=== PATIENT | female | born 1950 | race Caucasian/White ===

== ENCOUNTER 2024-06-04 10:41 | Outpatient (AMB) | payer BC, SELFPAY ==
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
[2024-06-04 10:59] VITALS: BP 142/76; PULSE 52; RESP 15; O2SAT 97; BMI 29.3
== END 2024-06-04 11:53 | disposition home or self-care (01) ==
PROVIDERS: PCP Nurse Practitioner Family; Visit Provider Nurse Practitioner Family
DX: I10 Essential (primary) hypertension (principal); M17.0 Bilateral primary osteoarthritis of knee; J44.89 Other specified chronic obstructive pulmonary disease; E78.2 Mixed hyperlipidemia; F43.23 Adjustment disorder with mixed anxiety and depressed mood; E06.3 Autoimmune thyroiditis; I25.10 Atherosclerotic heart disease of native coronary artery without angina pectoris; K44.9 Diaphragmatic hernia without obstruction or gangrene; K21.9 Gastro-esophageal reflux disease without esophagitis; R09.89 Other specified symptoms and signs involving the circulatory and respiratory systems

== ENCOUNTER → 2024-06-04 10:41 | Outpatient (BNVA) | payer BC, SELFPAY | PROVIDERS: PCP Nurse Practitioner Family; Visit Provider Nurse Practitioner Family | DX: M17.0 Bilateral primary osteoarthritis of knee (principal); I10 Essential (primary) hypertension; E78.2 Mixed hyperlipidemia; J44.89 Other specified chronic obstructive pulmonary disease; F43.23 Adjustment disorder with mixed anxiety and depressed mood; I25.10 Atherosclerotic heart disease of native coronary artery without angina pectoris; K44.9 Diaphragmatic hernia without obstruction or gangrene; K21.9 Gastro-esophageal reflux disease without esophagitis; R09.89 Other specified symptoms and signs involving the circulatory and respiratory systems | CPT/HCPCS: 96127; 96160 ==

== ENCOUNTER 2024-06-04 12:00 | Outpatient (REF) | payer MEDICARE, BC, SELFPAY ==
[2024-06-04 14:25] LABS: Hematocrit 44.2 % (37.0-47.0); Mean Corpuscular HGB Conc 33.9 g/dl (31.0-35.0); Mean Corpuscular Hemoglobin 29.2 pg (27.0-33.0); Mean Corpuscular Volume 86.2 fL (80.0-98.0); Mean Platelet Volume 9.4 fL (9.4-12.3); Platelet Count 427 X10*3/uL (160-400); Red Blood Count 5.13 X10*6/uL (4.20-5.50); Red Cell Distribution Width 12.7 % (11.0-16.0); White Blood Count 9.2 X10*3/uL (4.8-10.8)
[2024-06-04 14:36] LABS: Estimated Average Glucose 114 mg/dL; Hemoglobin A1c % 5.6 % (<6.0)
[2024-06-04 14:47] LABS: Creatinine Urine 30.85 mg/dL; Microalbumin Urine < 5.0 mg/L
[2024-06-04 15:13] LABS: TSH reflex Free T4 1.16 uIU/mL (0.32-4.0); Vitamin D 25-OH Total 57.5 ng/mL (>30)
[2024-06-04 15:19] LABS: Folate 17.1 ng/mL (> or = 4.0); Vitamin B12 794 pg/mL (200-900)
[2024-06-04 15:20] LABS: Anion Gap 15 (12-20)
[2024-06-04 15:25] LABS: Alanine Aminotransferase 35 U/L (0-31); Albumin Level 4.3 g/dL (3.5-5.0); Alkaline Phosphatase 100 U/L (39-117); Aspartate Amino Transferase 23 U/L (5-31); Bilirubin Total 0.5 mg/dL (0.0-1.0); Blood Urea Nitrogen 13 mg/dL (9-16); Calcium 10.4 mg/dL (8.4-10.2); Carbon Dioxide 28 mmol/L (22-29); Chloride 96 mmol/L (96-108); Estimated Glomerular Filt Rate > 60; Glucose Random 92 mg/dL (60-115); Iron 118 mcg/dL (30-160); Percent Iron Saturation 44 % (15-50); Potassium 4.5 mmol/L (3.3-5.1); Sodium 134 mmol/L (135-145); Total Iron Binding Capacity 270 mcg/dL (228-428); Total Protein 7.9 g/dL (6.5-8.0); Unsaturated Iron Binding 152 ug/dL
[2024-06-06 07:08] LABS: LDL Cholesterol Direct 131 mg/dL (<100)
== END 2024-06-04 12:01 | disposition home or self-care (01) ==
LOC: HO.WFDLDS 12:00
PROVIDERS: Visit Provider Nurse Practitioner Family
DX: E78.5 Hyperlipidemia, unspecified (principal); I10 Essential (primary) hypertension; M17.0 Bilateral primary osteoarthritis of knee
CPT/HCPCS: 36415; 80053; 82306; 82570; 82607; 82746; 83036; 83540; 83721; 84443; 85027

== ENCOUNTER 2024-06-23 10:25 | Outpatient (AMB) | payer MEDICARE, SELFPAY ==
--- NOTE | 2024-06-23 10:33 | A.OFFPC_ITS ---
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- albuterol sulfate 90 mcg/actuation 2 puffs inhalation Q4H PRN atorvastatin 10 mg PO QPM baclofen 10 mg PO TID PRN diclofenac sodium 75 mg PO BID duloxetine 30 mg PO DAILY famotidine 20 mg PO BID fluticasone furoate 27.5 mcg/actuation 1 spray intranasal DAILY levothyroxine 88 mcg PO DAILY loratadine 10 mg PO DAILY losartan-hydrochlorothiazide 50-12.5 mg 1 tab PO DAILY mometasone (Asmanex Twisthaler) 2 inhalations inhalation DAILY montelukast 10 mg PO BEDTIME Tobacco use date assessed: 06/04/24 Dental Screening Dental Screen Date: 06/04/24 HPI HPI Comments History of Present Illness Details 73 y/o F with asthma/COPD overlap, 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, hypothyroid, HTN, HLD, carotid bruit bilat , spinal stenosis with left for extremity radiculopathy (mri lumbar spine wo contrast 05/05/23 ), osteopenia, CAD (noted on ct abd/pelvis 04/26/22 calcifications of the abd aorta c/w atherosclerosis), PACs, vit d def, hiatal hernia, fatty liver, uterine fibroids, right proximal subclavian artery stenosis US done 04/15/19 and 12/15/20 w/o change, osteoarthritis bilat knees, 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 Reports cologaurd negative 2020 Mammo 06/07/23 wnl, 2023 ordered and pending DEXA 06/07/23 osteopenia Pap thinks last one 2021 Tdap 2018, Flu today CTA of neck 05/2022 negative Specialists: Orthopedics first appt today Here today to f/u on complex conditions Reviewed with her today: Labs from today show sodium of 134 otherwise normal electrolytes, normal renal function, mild elevation in calcium 10.4, normal iron profile, ALT 35, AST 23, vitamin D normal, TSH normal, folate normal, direct LDL 131 Currently on Asmanex inhaler, however high copay with this. Was on Flovent in the past and this was not covered. Arnuity will be covered at a lower cost. HLD - was not taking statin QD, d/t joint aches/pains. She was taking TID. She increased to daily since her labs, however started w/ joint aches and pains again. In regards to elevated Ca, was not taking Ca+ supplement, only Vitamin D. She has since started herself on VitD+Ca+Mg+Zinc. Reviewed mild low Na+. She is on HCTZ. No dietary reasons for this. Mood - would like to come off Cymbalta. Discussed cont at this time, until case is closed. She is not having any adverse effects. Environmental/seasonal allergies, causes ears to feel plugged, effects breathing. On nasal ICS and inhaled ICD, antihistamine. Exam Awake alert oriented, no acute distress Right carotid bruit TM intact mild congestion bilat Regular rate and rhythm Lung sounds clear, dim throughout Bilateral lower extremities skin intact, positive varicosities, normal pedal pulses, no edema Mood and affect appropriate Plan: Stop Asmanex d/t insurance START Arnuity 200mcg 1 puff QD. Stop Statin. Start Zetia with a goal of improved LDL w/o side effects caused by Statin. Cont VitD+Ca+Mg+Zinc Plan to monitor the Na levels and if needed d/c the HCTZ. Ok to add small amt of Na+ to food. Refer to [facility] for allergy testing/treatment. Flu shot today. RTO Felice for sAWV sooner PRN This note is constructed using voice recognition software. While every effort has been made to ensure accuracy in case management director, still errors may have been included Sometimes, these errors may affect the content or meaning of the given sentence . Total time spent caring for the patient today was 45 minutes. This includes time spent before the visit reviewing the chart, time spent during the visit, and time spent after the visit on documentation [facility] Medical History Degenerative joint disease of low back Arthritis Thyroid disease Palpitation High cholesterol Hypertension Sinusitis COPD (chronic obstructive pulmonary disease) Asthma Surgical History H/O section Family History Father Substance abuse Hypertension Alcoholism Sister Diabetes Afib Breast cancer Maternal Grandmother Cardiovascular disease Paternal Grandfather Cardiovascular disease Mother Thyroid disorder Social History Household Members: Family and Children Both parents involved: No Caregiver staying overnight: No Housing: House Are you a primary animal care assistant to a significant other at home: No Do you presently have visiting nurse or other home services: No 75 years or older and lives alone: No Alcohol intake: never Patient Tobacco Use Status: Never used Tobacco e-Cigarette/Vaping Use: Never Used service: No Current occupational status: retired Cognitive needs: No Hearing needs: No Vision needs: No Questionnaire Thrive Questionnaire Date Thrive assessed: 06/04/24 MILAGROS-7 AMB Questionnaire MILAGROS-7 Date MILAGROS - 7 assessed: 06/04/24 Source: Developed by Drs. Fredi Randall, Joseline Magdaleno, Derek Flores and colleagues, with an educational mercy from [employer]. Physical exam (Primary Care) Vital Signs: Last Vital Signs Temp 97.7 F 06/23/24 10:35 Pulse 77 06/23/24 10:35 Resp 14 06/23/24 10:35 BP 132/72 06/23/24 10:35 Pulse Ox 97 06/23/24 10:35 Oxygen Delivery Method Room Air 06/23/24 10:35 BMI result Body Mass Index 29.3 Tobacco/Smoking Status: Tobacco use Status Tobacco use date assessed 06/04/24 06/23/24 10:37 Patient Tobacco Use Status Never used Tobacco 06/23/24 10:37 e-Cigarette/Vaping Use Never Used 06/23/24 10:37 Thrive Assessment: Date of Thrive Assessment Date Thrive assessed 06/04/24 06/23/24 10:37 Office Procedures Flu Questionnaire Does the patient have a severe egg allergy?: No Does the patient have severe life threatening allergies?: No Does the patient have a fever or illness today?: No Has the patient ever had Guillain-Lynn Syndrome?: No Has the patient ever had any past reaction to a flu shot?: No Immunizations Fluarix Triv [id number] (PF) 45 mcg (15 mcg x 3)/0.5 mL IM syringe Performing Provider: KELTON Hair Performing Location[place] [facility] Administered by: Guadalupe Batista RN on 06/23/24 11:19 Dose Route Admin Location Dispensed Lot Number Expiration Date [facility] 0.5 mL IM Right Deltoid 0.5 mL [id number] 03/16/25 [id number] [employer] VIS Given Date VIS Provided VIS Publication Date 06/23/24 Single Vaccine 21 Eligibility Eligibility Date Funding Source Not [facility] Eligible 06/23/24 Private Coding Level of Care Code Est Pt Level 5 (03705) Complex EM visit Add On G2211 Diagnoses Primary hypertension I10 Hypertension type: primary hypertension Mixed hyperlipidemia E78.2 Hyperlipidemia type: mixed hyperlipidemia Environmental and seasonal allergies J30.89 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 E06.3 Osteopenia, unspecified location M85.80 Osteopenia location: unspecified Atherosclerosis of [place] coronary artery of [place] heart without angina pectoris I25.10 Associated angina: without angina Coronary Disease-Associated Artery/Lesion type: [place] artery [place] vs. 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 (2) Hyperlipidemia: Code(s): E78.5 - Hyperlipidemia, unspecified Category: Medical Qualifiers: Hyperlipidemia type: mixed hyperlipidemia Qualified Code(s): E78.2 - Mixed hyperlipidemia (3) Environmental and seasonal allergies: Code(s): J30.89 - Other allergic rhinitis Category: Medical Plan: . 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 (5) Osteopenia: Code(s): M85.80 - Other specified disorders of bone density and structure, unspecified site Category: Medical Qualifiers: Osteopenia location: unspecified Qualified Code(s): M85.80 - Other specified disorders of bone density and structure, unspecified site Plan: . (6) CAD (coronary atherosclerotic disease): Comment: noted on ct abd/pelvis 04/26/22 calcifications of the abd aorta c/w atherosclerosis Code(s): I25.10 - Atherosclerotic heart disease of [place] coronary artery without angina pectoris Category: Medical Qualifiers: Associated angina: without angina Coronary Disease-Associated Artery/Lesion type: [place] artery [place] vs. transplanted heart: [place] heart Qualified Code(s): I25.10 - Atherosclerotic heart disease of [place] coronary artery without angina pectoris Plan: . (7) Fatty liver: Code(s): K76.0 - Fatty (change of) liver, not elsewhere classified Category: Medical Plan: . (8) Bilateral carotid bruits: Code(s): R09.89 - Other specified symptoms and signs involving the circulatory and respiratory systems Category: Medical Plan: . (9) Hiatal hernia with GERD without esophagitis: Code(s): K44.9 - Diaphragmatic hernia without obstruction or gangrene; K21.9 - Gastro- esophageal reflux disease without esophagitis Category: Medical Plan: . (10) Adjustment disorder with mixed anxiety and depressed mood: Code(s): F43.23 - Adjustment disorder with mixed anxiety and depressed mood Category: Medical Plan: . (11) Asthma-chronic obstructive pulmonary disease overlap syndrome: Code(s): J44.89 - Other specified chronic obstructive pulmonary disease Category: Medical Plan: . 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 (13) Hyponatremia: Code(s): E87.1 - Hypo-osmolality and hyponatremia Category: Medical Plan: . Plan . Orders: Orders Influenza [id number] Immunization Today Z23 - Encounter for immunization Comprehensive [place]. Panel Fast 09/17/24 E06.3 - Autoimmune thyroiditis, E78.2 - Mixed hyperlipidemia, I10 - Essential (primary) hypertension, I25.10 - Atherosclerotic heart disease of [place] coronary artery without angina pectoris, K76.0 - Fatty (change of) liver, not elsewhere classified, M85.80 - Other specified disorders of bone density and structure, unspecified site Microalbumin, Random (w Creat) 09/17/24 E06.3 - Autoimmune thyroiditis, E78.2 - Mixed hyperlipidemia, I10 - Essential (primary) hypertension, I25.10 - Atherosclerotic heart disease of [place] coronary artery without angina pectoris, K76.0 - Fatty (change of) liver, not elsewhere classified, M85.80 - Other specified disorders of bone density and structure, unspecified site TSH reflex Free T4 09/17/24 E06.3 - Autoimmune thyroiditis, E78.2 - Mixed hyperlipidemia, I10 - Essential (primary) hypertension, I25.10 - Atherosclerotic heart disease of [place] coronary artery without angina pectoris, K76.0 - Fatty (change of) liver, not elsewhere classified, M85.80 - Other specified disorders of bone density and structure, unspecified site Vitamin B12 and Folate 09/17/24 E06.3 - Autoimmune thyroiditis, E78.2 - Mixed hyperlipidemia, I10 - Essential (primary) hypertension, I25.10 - Atherosclerotic heart disease of [place] coronary artery without angina pectoris, K76.0 - Fatty (change of) liver, not elsewhere classified, M85.80 - Other specified disorders of bone density and structure, unspecified site Vitamin D 25-OH Total 09/17/24 E06.3 - Autoimmune thyroiditis, E78.2 - Mixed hyperlipidemia, I10 - Essential (primary) hypertension, I25.10 - Atherosclerotic heart disease of [place] coronary artery without angina pectoris, K76.0 - Fatty (change of) liver, not elsewhere classified, M85.80 - Other specified disorders of bone density and structure, unspecified site Complete Blood Count no Diff 09/17/24 E06.3 - Autoimmune thyroiditis, E78.2 - Mixed hyperlipidemia, I10 - Essential (primary) hypertension, I25.10 - Atherosclerotic heart disease of [place] coronary artery without angina pectoris, K76.0 - Fatty (change of) liver, not elsewhere classified, M85.80 - Other specified disorders of bone density and structure, unspecified site Hemoglobin A1c 09/17/24 E06.3 - Autoimmune thyroiditis, E78.2 - Mixed hyperlipidemia, I10 - Essential (primary) hypertension, I25.10 - Atherosclerotic heart disease of [place] coronary artery without angina pectoris, K76.0 - Fatty (change of) liver, not elsewhere classified, M85.80 - Other specified disorders of bone density and structure, unspecified site Lipid Panel 09/17/24 E06.3 - Autoimmune thyroiditis, E78.2 - Mixed hyperlipidemia, I10 - Essential (primary) hypertension, I25.10 - Atherosclerotic heart disease of [place] coronary artery without angina pectoris, K76.0 - Fatty (change of) liver, not elsewhere classified, M85.80 - Other specified disorders of bone density and structure, unspecified site Referrals Allergy & Immunology Referral J30.89 - Other allergic rhinitis Medications: New duloxetine 30 mg PO DAILY 90 caps 1RF fluticasone furoate 200 mcg/actuation (Arnuity Ellipta) 1 inh inhalation DAILY 90 days 90 ea 2RF ezetimibe (Zetia) 10 mg PO DAILY 90 tabs 1RF albuterol sulfate 90 mcg/actuation 2 puffs inhalation Q4H PRN 8.5 grams 2RF shortness of breath or wheezing montelukast 10 mg PO BEDTIME 90 tabs 2RF Changed From famotidine 20 mg PO BID To famotidine 20 mg PO BID 90 days 180 tabs 2RF From levothyroxine 88 mcg PO DAILY To levothyroxine 88 mcg PO DAILY 90 days 90 tabs 1RF From diclofenac sodium 75 mg PO BID To diclofenac sodium 75 mg PO BID 90 days 180 tabs 2RF From fluticasone furoate 27.5 mcg/actuation into each nostril 1 spray intranasal DAILY To fluticasone furoate 27.5 mcg/actuation into each nostril 1 spray intranasal DAILY 90 days 27.3 mL 2RF Refilled losartan-hydrochlorothiazide 50-12.5 mg 1 tab PO DAILY 90 tabs 0RF
[2024-06-23 10:35] VITALS: BP 132/72; PULSE 77; RESP 14; TEMP 36.5; O2SAT 97; BMI 29.3
== END 2024-06-23 11:29 | disposition home or self-care (01) ==
PROVIDERS: PCP Nurse Practitioner Family; Visit Provider Nurse Practitioner Family
DX: I10 Essential (primary) hypertension (principal); E78.2 Mixed hyperlipidemia; J44.89 Other specified chronic obstructive pulmonary disease; J30.89 Other allergic rhinitis; E06.3 Autoimmune thyroiditis; M85.80 Other specified disorders of bone density and structure, unspecified site; I25.10 Atherosclerotic heart disease of native coronary artery without angina pectoris; K76.0 Fatty (change of) liver, not elsewhere classified; R09.89 Other specified symptoms and signs involving the circulatory and respiratory systems; K44.9 Diaphragmatic hernia without obstruction or gangrene; F43.23 Adjustment disorder with mixed anxiety and depressed mood; Z23 Encounter for immunization

== ENCOUNTER 2024-06-23 10:25 | Outpatient (REF) | payer MEDICARE, SELFPAY ==
--- NOTE | ~2024-06-23 | XR_ITS ---
EXAMINATION: X-ray bilateral knees CLINICAL INFORMATION: Pain COMPARISON: None TECHNIQUE: AP bilateral knees one view. Left knee 2 views. Right knee 2 views. FINDINGS: Right knee: Severe medial compartment arthritis, marked joint space loss, osteophytes, sclerosis. Mild lateral and patellofemoral arthritis. No acute fracture or dislocation. Small suprapatellar joint fluid. No suspicious soft tissue calcification. Left knee: Severe medial compartment arthritis, marked joint space loss, osteophytes, sclerosis, cyst. Mild lateral compartment arthritis with chondrocalcinosis. Mild patellofemoral arthritis. No suspicious soft tissue calcification. XR/XR knee LT 3V IMPRESSION: Right knee: Tricompartment osteoarthritis. Severe medial compartment arthritis. Left knee: Tricompartment osteoarthritis. Severe medial compartment arthritis. Electronically signed by: Bipin Rivera MD 06/23/2024 03:14 PM EDT
--- NOTE | ~2024-06-23 | XR_ITS ---
EXAMINATION: X-ray bilateral knees CLINICAL INFORMATION: Pain COMPARISON: None TECHNIQUE: AP bilateral knees one view. Left knee 2 views. Right knee 2 views. FINDINGS: Right knee: Severe medial compartment arthritis, marked joint space loss, osteophytes, sclerosis. Mild lateral and patellofemoral arthritis. No acute fracture or dislocation. Small suprapatellar joint fluid. No suspicious soft tissue calcification. Left knee: Severe medial compartment arthritis, marked joint space loss, osteophytes, sclerosis, cyst. Mild lateral compartment arthritis with chondrocalcinosis. Mild patellofemoral arthritis. No suspicious soft tissue calcification. XR/XR knee RT 3V IMPRESSION: Right knee: Tricompartment osteoarthritis. Severe medial compartment arthritis. Left knee: Tricompartment osteoarthritis. Severe medial compartment arthritis. Electronically signed by: Bipin Rivera MD 06/23/2024 03:14 PM EDT
== END 2024-06-23 10:26 | disposition home or self-care (01) ==
LOC: HO.HOSX 10:25
PROVIDERS: PCP Nurse Practitioner Family; Visit Provider Nurse Practitioner Family
DX: M25.561 Pain in right knee (principal); M25.562 Pain in left knee; M17.0 Bilateral primary osteoarthritis of knee; I25.10 Atherosclerotic heart disease of native coronary artery without angina pectoris; I10 Essential (primary) hypertension; E06.3 Autoimmune thyroiditis; E78.2 Mixed hyperlipidemia; K76.0 Fatty (change of) liver, not elsewhere classified; M85.80 Other specified disorders of bone density and structure, unspecified site; J30.89 Other allergic rhinitis; J44.89 Other specified chronic obstructive pulmonary disease; E83.52 Hypercalcemia; E67.3 Hypervitaminosis D; E78.1 Pure hyperglyceridemia; K44.9 Diaphragmatic hernia without obstruction or gangrene; F43.23 Adjustment disorder with mixed anxiety and depressed mood; K21.9 Gastro-esophageal reflux disease without esophagitis; Z23 Encounter for immunization
CPT/HCPCS: 73562; 90471; 90656; 99202; 99212

== ENCOUNTER 2024-06-23 13:54 | Outpatient (AMB) | payer MEDICARE, SELFPAY ==
--- NOTE | 2024-06-23 14:06 | MHC.OFFVIS ---
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 History of cortisone and gel injections with mild relief. Reports a systemic reaction to the most recent gel injection. She has had history of cortisone which were not helpful. Her pain is felt every day, the right knee is worse than the left. No previous surgical interventions. She is taking Diclofenac PO BID which is helping. 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 She states she has difficulty gardening and difficulty walking and difficulty going up and downstairs. She has 2 large dogs which she would like to walk but can not so she rides her bike instead. She has had steroid injections which no longer helpful and gel injections apparently gave her a severe systemic allergic reaction. She feels the quality of her life is diminished. She has been dealing with this for years and would like to consider definitive treatment. [facility] Medical History Degenerative joint disease of low back Arthritis Thyroid disease Palpitation High cholesterol Hypertension Sinusitis COPD (chronic obstructive pulmonary disease) Asthma Surgical History H/O section Family History Father Substance abuse Hypertension Alcoholism Sister Diabetes Afib Breast cancer Maternal Grandmother Cardiovascular disease Paternal Grandfather Cardiovascular disease Mother Thyroid disorder Social History Household Members: Family and Children Both parents involved: No Caregiver staying overnight: No Housing: House Are you a primary resident care aid to a significant other at home: No Do you presently have visiting nurse or other home services: No 75 years or older and lives alone: No Alcohol intake: never Patient Tobacco Use Status: Never used Tobacco e-Cigarette/Vaping Use: Never Used service: No Current occupational status: retired Cognitive needs: No Hearing needs: No Vision needs: No Physical Exam Const General: cooperative, healthy appearing, no acute distress, well developed and alert HEENT Head: Yes normal to inspection, Yes normocephalic and Yes atraumatic Mouth: moist mucous membranes Eyes General: appearance normal, both eyes and all related structures EOM: EOMs intact bilaterally Chest Other: no audible wheezing. Resp Other: No audible wheezing Effort & Inspection: normal respiratory effort Back/Spine/Pelvis Cervical Spine: normal cervical lordosis Skin General skin exam: no rashes or lesions noted Neuro General: no focal motor deficits Extrem Other: There is tenderness to palpation medial compartment bilateral knees There is 10 degree varus malalignment on the right She has no effusion Range of motion is 5-130 degrees bilaterally. Psych Appearance: grossly normal and well kempt Mental Status: mental status grossly normal Speech and movement: Normal speech and movement present Affect: normal affect Attitude: cooperative Results Reviewed Results Reviewed: I personally reviewed relevant radiographs. Severe varus pattern knee arthritis with obliteration of the medial compartment bilaterally Assessment & Plan Assessment & Plan (1) Bilateral primary osteoarthritis of knee: Code(s): M17.0 - Bilateral primary osteoarthritis of knee Category: Medical Plan: This is a active 73-year-old woman who has severe bilateral knee osteoarthritis right greater than left. She has failed conservative treatment and would like to consider arthroplasty. Her radiographs show severe arthrosis with subluxation. I recommend right knee arthroplasty. I explained the procedure to her and my expectations both pre and postoperatively. I explained the risks, benefits and alternatives, including but not limited to, the risk of infection, stiffness, aseptic loosening, hardware failure as well as medical complications associated with surgery such as pneumonia, cardio respiratory complications. She expressed understanding and would like to proceed forward. We will need to get medical clearance and review her chart accordingly. I will have Shellie our nurse navigator contact her and begin the process. Orders: Orders XR knee RT 3V Today M25.561 - Pain in right knee XR knee LT 3V Today M25.562 - Pain in left knee Coding Level of Care Code New Pt Level 4 (61869) Diagnoses Bilateral primary osteoarthritis of knee M17.0
== END 2024-06-23 14:52 | disposition home or self-care (01) ==
PROVIDERS: PCP Nurse Practitioner Family; Visit Provider Orthopaedic Surgery
DX: M17.0 Bilateral primary osteoarthritis of knee (principal)
CPT/HCPCS: 99204

== ENCOUNTER 2024-07-15 11:01 | Outpatient (REF) | payer MEDICARE, SELFPAY ==
--- NOTE | ~2024-07-15 | MM_ITS ---
EXAMINATION: MM SCREENING DIGITAL BREAST TOMOSYNTHESIS, BILATERAL CLINICAL INFORMATION: Screening. Asymptomatic. COMPARISON: Mammography: Comparison is made with available priors TECHNIQUE: Digital breast mammography with tomosynthesis is performed in both the craniocaudal and mediolateral oblique views along with computer-aided detection (CAD). FINDINGS: There are scattered areas of fibroglandular density (ACR BI-RADS breast composition Category b). There are no significant masses, abnormal calcifications, or other abnormalities. MM/MM tomosynthesis screening BI IMPRESSION: No mammographic evidence of malignancy. ASSESSMENT: BI-RADS BI-RADS 1 - Negative RECOMMENDATION: Routine annual mammography screening. 1 year F/U This examination should not preclude the clinical evaluation of a suspicious palpable abnormality. This patient's information was entered into a reminder system with a target due date for their next mammogram. Electronically signed by: Lety Sanchez DO 07/24/2024 08:15 [facility]
== END 2024-07-15 11:02 | disposition home or self-care (01) ==
LOC: HO.MAMMO 11:01
PROVIDERS: PCP Nurse Practitioner Family; Visit Provider Nurse Practitioner Family
DX: Z12.31 Encounter for screening mammogram for malignant neoplasm of breast (principal)
CPT/HCPCS: 77063; 77067

== ENCOUNTER → 2024-07-15 11:15 | Outpatient (BNV) | payer MEDICARE, SELFPAY | PROVIDERS: PCP Nurse Practitioner Family; Visit Provider Internal Medicine | DX: Z12.31 Encounter for screening mammogram for malignant neoplasm of breast (principal) | CPT/HCPCS: 77063; 77067 ==

== ENCOUNTER 2024-08-18 13:45 | Outpatient (AMB) | payer MEDICARE, SELFPAY ==
[2024-08-18 13:55] VITALS: BP 138/68; PULSE 80; BMI 28.9
--- NOTE | 2024-08-18 13:55 | MHC.OFFVIS ---
Vital Signs 08/18/24 13:55 Height 5 ft 3 in Weight 163 lb 2.273 oz BMI 28.9 BP 138/68 Blood Pressure Location Lt brachial Position Sitting Pulse 80 Pulse Source Monitor Intake Visit Reasons: Preop/ Alex/ total knee clearance/ PVC's Allergies hyaluronic acid Allergy (Verified 06/23/24 14:11) systemic inflammation Medication List - Last Reconciled 08/18/24 by Felipe Ramirez MD albuterol sulfate 90 mcg/actuation 2 puffs inhalation Q4H PRN baclofen 10 mg PO TID PRN diclofenac sodium 75 mg PO BID 90 days duloxetine 30 mg PO DAILY ezetimibe (Zetia) 10 mg PO DAILY famotidine 20 mg PO BID 90 days fluticasone furoate 200 mcg/actuation (Arnuity Ellipta) 1 inh inhalation DAILY 90 days fluticasone furoate 27.5 mcg/actuation 1 spray intranasal DAILY 90 days levothyroxine 88 mcg PO DAILY 90 days loratadine 10 mg PO DAILY losartan-hydrochlorothiazide 50-12.5 mg 1 tab PO DAILY montelukast 10 mg PO BEDTIME HPI Comments Details: Stacie is here for consultation regarding regarding preoperative risk stratification for knee surgery. Patient does not have any known cardiac issues. She does not have any history of coronary artery disease or myocardial infarction or cardiomyopathy or congestive heart failure or arrhythmias or in fact anything cardiac related. She states that she is mainly limited because of arthritic pains but otherwise she does not have any symptoms from cardiac. Apart from the pain issues, she can walk, go up and downstairs, extra with no cardiac symptoms and has never noticed any anginal-type symptoms. Also, till recently, she can walk 15-20 minutes or more at a moderate pace with no issues. However, because of arthritic pains, she is now riding her bicycle instead. Otherwise, there is mention of subclavian steal syndrome and she states that it was mentioned to her a long time ago, but she did not see any vascular surgery or have any interventions. [facility] Medical History Degenerative joint disease of low back Arthritis Thyroid disease Palpitation High cholesterol Hypertension Sinusitis COPD (chronic obstructive pulmonary disease) Asthma Surgical History H/O section Family History Father Substance abuse Hypertension Alcoholism Sister Diabetes Afib Breast cancer Maternal Grandmother Cardiovascular disease Paternal Grandfather Cardiovascular disease Mother Thyroid disorder Social History Household Members: Family and Children Both parents involved: No Caregiver staying overnight: No Housing: House Are you a primary direct care counselor to a significant other at home: No Do you presently have visiting nurse or other home services: No 75 years or older and lives alone: No Alcohol intake: never Patient Tobacco Use Status: Never used Tobacco e-Cigarette/Vaping Use: Never Used service: No Current occupational status: retired Cognitive needs: No Hearing needs: No Vision needs: No Review of Systems Const Denies weakness ENT Denies dizziness Card Denies chest pain, Denies chest pain with activity, Denies syncope, Denies rapid heart rate, Denies pedal edema, Denies edema, Denies leg edema, Denies lightheadedness, Reports palpitations, Denies dyspnea, Denies dyspnea on exertion and Denies orthopnea Resp Denies cough, Denies dyspnea and Denies dyspnea on exertion GI Denies hematochezia and Denies change in stool character Musc Denies abnormal gait, Denies muscle cramps, Denies muscle weakness, Denies numbness, Denies radiating pain into limb and Denies tingling Neuro Denies abnormal gait, Denies dizziness, Denies syncope, Denies numbness, Denies tingling and Denies weakness Endo Reports palpitations Physical Exam Vital Signs: Last Vital Signs Pulse 80 08/18/24 13:55 BP 138/68 08/18/24 13:55 BMI result Body Mass Index 28.9 Const General: comfortable and no acute distress Orientation/consciousness: patient oriented x3 HEENT Other: Unremarkable Head: Yes normal to inspection Neck Neck: Yes normal visual inspection Chest Chest palpation & inspection: normal inspection of the chest Resp Auscultation: clear to auscultation bilaterally Cardio Palpation: normal PMI Heart sounds: S1 normal heart sound present, S2 normal heart sound present, no gallops, no murmurs and no rubs GI Palpation (GI): Soft to palpation Back/Spine/Pelvis Other: unremarkable Skin General skin exam: no rashes or lesions noted Neuro General: patient oriented x3 Extrem General: Yes normal to inspection Psych Mental Status: mental status grossly normal Office Procedures EKG Details: EKG with underlying sinus rhythm at 80/Min; supraventricular ectopy; TX prolongation to 222 milliseconds; [place]. [address]-Putydtqebbxoiubym, Complete Assessment & Plan Assessment & Plan (1) Preoperative cardiovascular examination: Code(s): Z01.810 - Encounter for preprocedural cardiovascular examination Category: Medical Plan No cardiac history and no cardiac symptoms either. With regard to findings on other imaging studies that she has had in the past, CTA abdomen shows mild atherosclerotic changes. No aneurysm. In the ultrasound, question of right proximal subclavian artery stenosis. In the CTA of the neck, no large vessel occlusions. No significant narrowing of the subclavian arteries proximal to the vertebral artery origins on either side. Overall, there is a question of possible subclavian artery stenosis but not confirmed on CTA. He has no symptoms at all from this. Otherwise, she does not have any cardiac symptoms whatsoever. Overall, no contraindications to proceed with a knee surgery as planned. Cardiac risk would be low to intermediate. Otherwise, mainly aggressive risk factor modification for mild vascular disease as above. Discussed with patient and she is agreeable with this plan. Coding Level of Care Code New Pt Level 3 (45436) Diagnoses Preoperative cardiovascular examination Z01.810 CPT Codes EKG - CPT: 39661-Xbnfqpfulnbkkahpu, Complete ([id number])
== END 2024-08-18 14:32 | disposition home or self-care (01) ==
PROVIDERS: PCP Nurse Practitioner Family; Visit Provider Internal Medicine
DX: Z01.810 Encounter for preprocedural cardiovascular examination (principal); I44.0 Atrioventricular block, first degree; I49.1 Atrial premature depolarization
CPT/HCPCS: 93010; 99203

== ENCOUNTER → 2024-08-18 13:45 | Outpatient (BNVA) | payer MEDICARE, SELFPAY | PROVIDERS: PCP Nurse Practitioner Family; Visit Provider Internal Medicine | DX: Z01.810 Encounter for preprocedural cardiovascular examination (principal); I25.10 Atherosclerotic heart disease of native coronary artery without angina pectoris | CPT/HCPCS: 93005; 99202 ==

== ENCOUNTER 2024-08-19 15:26 | Outpatient (AMB) | payer MEDICARE, SELFPAY ==
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
[2024-08-19 15:30] VITALS: BP 133/60; PULSE 70; RESP 13; O2SAT 98; BMI 29.6
--- OUTSIDE RECORDS SUMMARY | 2024-08-26 15:17 | XMS_ITS | Continuity of Care Document ---
Author Organization [facility] Address [address] [address] [place] [address] Phone Care Team Providers Care Registered Radiologic Technologist Name Role Phone Unavailable Unavailable Unavailable Allergies, [...] Date Provider Providers Copied on Encounter Eye [facility], [address] [address], [place], [place], [id number], tel:[phone] [facility] [place] [facility] Patient is here for a 1 week post-op s/p LA BUL (chief complaint) Other specified postprocedural states Z98.890 2 No Information Referring Provider: Saray Torre, [address] [facility], [place], [address]. tel:[phone] [facility], [address] [address], [place], [place], [id number], tel:[phone] [place] No Information No Information Referring Provider: Saray Torre, [address] [facility] [address], [place], [address]. 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 tel:[phone] [facility], [address] [address], [place], [place], [address], tel:[phone] [place] Patient is here for decreased and fuzzy vision. 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 [address] [facility], [address], [place], [place], [address], . tel:[phone] Referring Provider: Saray Torre, [address] [place], [address]. tel:[phone] Family History Family Member Type Diagnosis Age At Onset Sister Problem (finding) Cataracts Mother Problem (finding) Cataracts Problem No relevant family history Brother Problem (finding) Cataracts Payers Payer name Insurance type Covered republican ID Authoriza tion(s) Pres HP Senior Plan CI [id number] Social History Type Description Quantity Date Captured [...] Z98.890; - See plan #1 Related to [place] tochalasis of right upper eyelid H02.831 - [...] H02.831 - See plan #1 Related to [place] tochalasis of left upper eyelid H02.834 - [...]
== END 2024-08-19 15:53 | disposition home or self-care (01) ==
PROVIDERS: PCP Nurse Practitioner Family; Visit Provider Nurse Practitioner Family
DX: Z01.818 Encounter for other preprocedural examination (principal)

== ENCOUNTER → 2024-08-19 15:26 | Outpatient (BNVA) | payer MEDICARE, SELFPAY | PROVIDERS: PCP Nurse Practitioner Family; Visit Provider Nurse Practitioner Family | DX: Z01.818 Encounter for other preprocedural examination (principal); E78.00 Pure hypercholesterolemia, unspecified; I10 Essential (primary) hypertension | CPT/HCPCS: 93005; 96127; 99212 ==

== ENCOUNTER → 2024-09-19 12:50 | Outpatient (BNVA) | payer MEDICARE, SELFPAY | PROVIDERS: PCP Nurse Practitioner Family | DX: Z01.818 Encounter for other preprocedural examination (principal) ==

== ENCOUNTER 2024-09-23 09:03 | Outpatient (REF) | payer MEDICARE, SELFPAY ==
--- OUTSIDE RECORDS SUMMARY | 2024-09-23 09:25 | XMS_ITS | Continuity of Care Document ---
Author Organization [facility] Address [address] [address] [place] [address] Phone Care Team Providers Care Scale Balancer Name Role Phone Unavailable Unavailable Unavailable Allergies, [...] Date Provider Providers Copied on Encounter Eye [facility], [address] [address], [place], [place], [address], tel:[phone] [facility] Patient is here for a 1 week post-op s/p LA BUL (chief complaint) Other specified postprocedural states Z98.890 2 No Information Referring Provider: Saray Torre, [address] [facility] [place], [address]. tel:[phone] [facility], [address] [address], [place], [place], [address], tel:[phone] [place] No Information No Information Referring Provider: Saray Torre, [address] [facility] [address], [place], [address]. 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 tel:[phone] [facility], [address] [address], [place], [place], [address], tel:[phone] [place] Patient is here for decreased and fuzzy vision. 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 [facility], [address], [place], [place], [address], . tel:[phone] Referring Provider: Saray Torre, [address] [place], [address]. tel:[phone] Family History Family Member Type Diagnosis Age At Onset Sister Problem (finding) Cataracts Mother Problem (finding) Cataracts Brother Problem (finding) Cataracts Problem No relevant family history Payers Payer name Insurance type Covered alliance party ID Authoriza tion(s) Pres HP Senior Plan CAP CI [id number] Social History Type Description Quantity Date Captured [...] Z98.890; - See plan #1 Related to [place] tochalasis of right upper eyelid H02.831 - [...] H02.831 - See plan #1 Related to [place] tochalasis of left upper eyelid H02.834 - The patient was co unseled on their treatment options. Patient will call if worsening.- Recommended artifical tears, such as Systane or Refresh 3-4x/day- Recommended warm compress 1-2x/day for 5 minutes at a time with lid massage- Recommended gel drop before bedtime, such as Genteal Gel Related to Dry eye syndrome of bilateral lacrimal glands H04.123 - The patient was co unseled in detail on the diagnosis and understands. The patient was counseled on their treatment options. A consult is recommended. Related to Dermatochalasis of right upper eyelid H02.831 - Will continue to o bserve condition [...]
[2024-09-23 11:36] LABS: Hematocrit 41.4 % (37.0-47.0); Hemoglobin 14.1 g/dl (12.0-16.0); Mean Corpuscular HGB Conc 34.1 g/dl (31.0-35.0); Mean Corpuscular Hemoglobin 29.3 pg (27.0-33.0); Mean Corpuscular Volume 85.9 fL (80.0-98.0); Mean Platelet Volume 8.9 fL (9.4-12.3); Platelet Count 385 X10*3/uL (160-400); Red Blood Count 4.82 X10*6/uL (4.20-5.50); Red Cell Distribution Width 13.5 % (11.0-16.0)
[2024-09-23 11:46] LABS: Estimated Average Glucose 114 mg/dL; Hemoglobin A1c % 5.6 % (<6.0)
[2024-09-23 12:25] LABS: Alanine Aminotransferase 53 U/L (0-31); Alkaline Phosphatase 73 U/L (39-117); Anion Gap 9 (12-20); Aspartate Amino Transferase 32 U/L (5-31); Bilirubin Total 0.3 mg/dL (0.0-1.0); Blood Urea Nitrogen 21 mg/dL (9-16); Calcium 9.4 mg/dL (8.4-10.2); Carbon Dioxide 28 mmol/L (22-29); Chloride 104 mmol/L (96-108); Cholesterol 174 mg/dL (<200); Estimated Glomerular Filt Rate > 60; Glucose Fasting 101 mg/dL (60-99); HDL Cholesterol 50 mg/dL (>40); LDL Cholesterol Calculated 105 mg/dL (<100); Potassium 3.9 mmol/L (3.3-5.1); Sodium 137 mmol/L (135-145); Total Protein 6.9 g/dL (6.5-8.0); Triglycerides 95 mg/dL (<150)
[2024-09-23 12:42] LABS: TSH reflex Free T4 1.28 uIU/mL (0.32-4.0); Vitamin D 25-OH Total 54.5 ng/mL (>30)
[2024-09-23 12:46] LABS: Creatinine Urine 174.16 mg/dL; Microalbum/Creatinine Ratio Ur 6.8 ug/mg cr (<30)
[2024-09-23 13:05] LABS: Folate 18.4 ng/mL (> or = 4.0); Vitamin B12 725 pg/mL (200-900)
== END 2024-09-23 09:04 | disposition home or self-care (01) ==
LOC: HO.WFDLDS 09:03
PROVIDERS: Visit Provider Nurse Practitioner Family
DX: K76.0 Fatty (change of) liver, not elsewhere classified (principal); I25.10 Atherosclerotic heart disease of native coronary artery without angina pectoris; M85.80 Other specified disorders of bone density and structure, unspecified site; E06.3 Autoimmune thyroiditis; I10 Essential (primary) hypertension; E78.2 Mixed hyperlipidemia
CPT/HCPCS: 36415; 80053; 80061; 82043; 82306; 82570; 82607; 82746; 83036; 84443; 85027

== ENCOUNTER 2024-09-25 11:55 | Outpatient (AMB) | payer MEDICARE, SELFPAY ==
--- NOTE | 2024-09-25 12:09 | AM.OFFVISMDC ---
Intake Vital Signs 09/25/24 12:22 Height 5 ft 3 in Weight 166 lb BMI 29.4 BP 118/68 Blood Pressure Location Rt brachial Respiration 12 Pulse 78 Pulse Source Pulse Oximeter Pulse Oximetry (%) 98 Oxygen Delivery Method Room Air Intake Visit Reasons: OCT 16MIN sAWV Intake Note: annual awv Wick Tender Required: No Allergies hyaluronic acid Allergy (Verified 09/25/24 13:01) systemic inflammation Medication List - Last Reconciled 09/25/24 by Analia Hamlin, [facility] [place]- albuterol sulfate 90 mcg/actuation 2 puffs inhalation Q4H PRN baclofen 10 mg PO BEDTIME PRN diclofenac sodium 75 mg PO BID 90 days duloxetine 30 mg PO BEDTIME ezetimibe (Zetia) 10 mg PO DAILY famotidine 20 mg PO BID PRN fluticasone furoate 27.5 mcg/actuation 1 spray intranasal BEDTIME fluticasone furoate 200 mcg/actuation (Arnuity Ellipta) 1 inh inhalation DAILY 90 days levothyroxine 88 mcg PO DAILY 90 days loratadine 10 mg PO DAILY losartan-hydrochlorothiazide 50-12.5 mg 1 tab PO DAILY montelukast 10 mg PO BEDTIME walker Folding Front wheeled walker duration 99 days Do you need a note to return to daycare/school/sports/work: No HPI HPI Comments History of Present Illness Details 74 y/o F with asthma/COPD overlap, adjustment disorder with mixed anxiety and depression, hypothyroid, HTN, HLD, carotid bruit bilat , spinal stenosis with left for extremity radiculopathy (mri lumbar spine wo contrast 05/05/23 ), osteopenia, CAD (noted on ct abd/pelvis 04/26/22 calcifications of the abd aorta c/w atherosclerosis), PACs, vit d def, hiatal hernia, fatty liver, uterine fibroids, right proximal subclavian artery stenosis US done 04/15/19 and 12/15/20 w/o change, osteoarthritis bilat knees, 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 The Medicare Annual Wellness Visit (AWV) is a yearly appointment with a health professional to identify health risks and help reduce them and to create or update a personalized prevention plan. During a Medicare AWV, health professionals should also review any current opioid prescriptions, detect any cognitive impairment, and establish or update medical and family history. SurgHx: Y FHx Y SocHx: Y Health Maintenance: See scanned preventative medicine assessment with personalized health plan and screening schedule. Colon 2017, repeat 10 years (2027). Reports cologaurd negative 2020 Mammo 07/15/24 DEXA 06/07/23 osteopenia Pap thinks last one 2021 declined further treatment Vaccines: Tdap 2017, Flu 08/2024, COVID vaccines UTD, Shingles x1 CTA of neck 05/2022 negative AAA screen: na EKG: na Elim Ira of Care: Orthopedics Cards Derm Visual Acuity: see results, due for exam. Has glasses. Blurred vision @ times. Hearing Screening: chronic tinnitus ACP:forms provided Dietary/Nutrition/Exercise Edu provided: Y Labs from 09/23/2024 show normal CBC, normal electrolytes and renal function, fasting glucose of 101 with an A1c of 5.6% elevated LFTs 32 for the AST an ALT of 53, normal alk phos, total cholesterol is 174, LDL is 105, HDL is 50, triglycerides are 95, normal vitamin-D, TSH, folate, urine microalbumin creatinine ratio During the course of the visit the patient was educated and counseled about appropriate screening and preventative services. Patient instructions were provided to the patient in written or electronic format. I have reviewed and verified the above information. The patient is a 74-year-old female presenting for her annual wellness visit and medical clearance for surgery. Osteopenia was noted in 2022, with a follow-up bone density test planned for 2024. Additionally, the patient reports an irregular mole on her left breast, present for about a year without significant changes. She experiences chronic tinnitus, which does not affect her sleep or daily activities, and mild urinary incontinence associated with urgency, particularly after prolonged sitting. She is also managing knee osteoarthritis, for which she is undergoing surgery. Euthyroid on current medications. Lipid profile at goal on current medications. Breathing is under control on current medications, hypertension well controlled on current medications Exam Awake alert oriented, no acute distress TM intact and clear bilat PERRLA, sclera and conjunctiva clear bilat Pharynx WNL Neck FROM, thyroid nontender Regular rate and rhythm Lung sounds dim throughout, clear Abd soft, nontender normoactive BS x 4 Left breast a popcorn seed sized raised irregular border light curry mole that appeared about 1 year ago, it is located in the LLQ Bilateral lower extremities skin intact, positive varicosities, normal pedal pulses, no edema Nonfocal nuero exam Mood and affect appropriate Plan: Follow through with dermatology and audiology appointments as planned. - Complete vaccine series for shingles and pneumococcal post-surgery. - Maintain hydration, especially around the time of your surgery. - Consider vision examination after surgical recovery. - Monitor any changes regarding the mole and inform if changes occur. - Explore advanced care planning documentation and discuss with family. - Contact me for any concerns or flare-ups post-surgery. RTO 6 months routine fu, sooner PRN An additional 30 minutes was spent addressing the problem(s) noted at todays visit. This includes time spent before the visit reviewing the chart, time spent during the visit, and time spent after the visit on documentation [facility] Medical History (Updated 09/25/24 @ 16:[address] [facility]) Subclavian artery stenosis, right CAD (coronary atherosclerotic disease) Skin cancer Lumbar stenosis Sciatica GERD (gastroesophageal reflux disease) Cough Wheezing Degenerative joint disease of low back Arthritis Thyroid disease Palpitation High cholesterol Hypertension Sinusitis COPD (chronic obstructive pulmonary disease) Asthma Surgical History (Updated 09/23/24 @ 10:10 by Sintia Vang RN) H/O colonoscopy H/O section Family History Father Substance abuse Hypertension Alcoholism Sister Diabetes Afib Breast cancer Maternal Grandmother Cardiovascular disease Paternal Grandfather Cardiovascular disease Mother Thyroid disorder Social History Household Members: Family and Children Both parents involved: No Caregiver staying overnight: No Housing: House Are you a primary assurance services manager health care to a significant other at home: No Do you presently have visiting nurse or other home services: No 75 years or older and lives alone: No Alcohol intake: never Patient Tobacco Use Status: Never used Tobacco e-Cigarette/Vaping Use: Never Used service: No Current occupational status: retired Cognitive needs: No Hearing needs: No Vision needs: No Questionnaire Medicare Wellness Checkup What [age]?: [age] What gender do you identify with?: female During the past 4 weeks, how much have you been bothered by emotional problems such as feeling anxious, depressed, irritable, sad or downhearted, and blue?: not at all During the past 4 weeks, has your physical & emotional health limited your social activities with family, friends, neighbors, or groups?: not at all During the past 4 weeks, how much bodily pain have you generally had?: moderate pain During the past 4 weeks, was someone available to help you if you needed & wanted help?: yes, as much as I wanted During the past 4 weeks, what was the hardest physical activity you could do for at least 2 minutes?: light Can you get to places out of walking distance without help? (For eg., can you travel alone on buses, taxis or drive your car?): Yes Can you go shopping for groceries or clothes without someone's help?: Yes Can you prepare your own meals?: Yes Can you do your housework without help?: Yes Because of any health problems, do you need the help of another person with your personal care needs such as eating, bathing, dressing or getting around the house?: Yes Can you handle your own money without help?: Yes During the past 4 weeks, how would you rate your health in general?: good During the past 4 weeks how have things been going for you?: pretty well Are you having difficulties driving your car?: no Do you always fasten your seat belt when you are in a car?: yes, usually During past 4 weeks, have you been bothered by the following: never: Falling or dizzy when standing up, Sexual problems?, Trouble eating well?, Teeth or denture problems?, Problems using the telephone? and Tiredness or fatigue? Have you fallen 2 or more times in the past year?: No Are you afraid of falling?: No Are you a smoker?: no During the past 4 weeks, how many drinks of wine, beer, or other alcoholic beverages did you have?: no alcohol at all Do you exercise for about 20 minutes 3 or more times a week?: yes, some of the time Have you been given information to help with the following?: no: Hazards in your house that might hurt you? and no: Keeping track of your medications? How often do you have trouble taking medicines the way you have been told to take them?: I always take medicine as prescribed How confident are you that you can control & manage most of your health problems?: very confident What is your race?: White Activity of Daily Living Bathing - sponge bath, tub bath or shower: receives no assistance (gets in/out by self, if usual bathing means Dressing - getting clothes from closets & drawers, including inner/outer garments & fasteners.: gets clothes & gets completely dressed without help Toileting - going to the 'toilet room' for urine/bowel elimination & cleaning self/arranging clothes: goes to toilet room, cleans self, arranges clothes without help Transfer: moves in & out of bed and chair without help (may use support object) Continence: controls urination/bowel movements completely by self Feeding: feeds self without help Total Score: 0 Information obtained from: patient Using telephone: independent Traveling: independent Shopping: independent Preparing meals: independent Housework: independent Taking medicine: independent Managing money: independent PHQ-9 Over the last 2 weeks, how often have you been bothered by any of the following problems? 02542 - PHQ-9 Billing: Patient declined-do not bill Source: Developed by Drs. Fredi Randall, Joseline Magdaleno, Derek Flores and colleagues, with an educational mercy from [employer]. Physical Exam Vital Signs: Last Vital Signs Pulse 78 09/25/24 12:22 Resp 12 09/25/24 12:22 BP 118/68 09/25/24 12:22 Pulse Ox 98 09/25/24 12:22 Oxygen Delivery Method Room Air 09/25/24 12:22 BMI result Body Mass Index 29.4 Office Procedures Vision Screening Right Eye: 20/25 Left Eye: 20/50 Bilateral: 20/25 Color: Pass 10033 - Vision Screening Assessment & Plan Assessment & Plan (1) Encounter for subsequent annual wellness visit (AWV) in Medicare patient: Code(s): Z00.00 - Encounter for general adult medical examination without abnormal findings (2) Atypical mole: Comment: LLQ of breast Code(s): D22.9 - Melanocytic nevi, unspecified (3) Osteopenia: Code(s): M85.80 - Other specified disorders of bone density and structure, unspecified site Qualifiers: Osteopenia location: unspecified Qualified Code(s): M85.80 - Other specified disorders of bone density and structure, unspecified site (4) Blurred vision: Code(s): H53.8 - Other visual disturbances (5) Tinnitus: Code(s): H93.19 - Tinnitus, unspecified ear Qualifiers: Laterality: bilateral Qualified Code(s): H93.13 - Tinnitus, bilateral (6) Hearing loss: Code(s): H91.90 - Unspecified hearing loss, unspecified ear Qualifiers: Hearing loss type: unspecified Laterality: bilateral Qualified Code(s): H91.93 - Unspecified hearing loss, bilateral (7) Hypertension: Code(s): I10 - Essential (primary) hypertension Qualifiers: Hypertension type: primary hypertension Qualified Code(s): I10 - Essential (primary) hypertension (8) Fatty liver: Code(s): K76.0 - Fatty (change of) liver, not elsewhere classified (9) Hyperlipidemia: Code(s): E78.5 - Hyperlipidemia, unspecified Qualifiers: Hyperlipidemia type: mixed hyperlipidemia Qualified Code(s): E78.2 - Mixed hyperlipidemia (10) 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 Orders: Orders Comprehensive [place]. Panel Fast 6 Months I10 - Essential (primary) hypertension, K76.0 - Fatty (change of) liver, not elsewhere classified, M85.80 - Other specified disorders of bone density and structure, unspecified site Lipid Panel 6 Months I10 - Essential (primary) hypertension, K76.0 - Fatty (change of) liver, not elsewhere classified, M85.80 - Other specified disorders of bone density and structure, unspecified site XR DEXA axial skeleton Today M85.80 - Other specified disorders of bone density and structure, unspecified site, Z13.820 - Encounter for screening for osteoporosis TSH reflex Free T4 6 Months I10 - Essential (primary) hypertension, K76.0 - Fatty (change of) liver, not elsewhere classified, M85.80 - Other specified disorders of bone density and structure, unspecified site Referrals Dermatology Referral D22.9 - Melanocytic nevi, unspecified Ophthalmology Referral H53.8 - Other visual disturbances Audiology Referral H91.90 - Unspecified hearing loss, unspecified ear, H93.19 - Tinnitus, unspecified ear Patient Instructions: Complete shingles and pcv vaccine series at the pharmacy Quality Reporting (2019) Adult ([facility] 138/11/08/68) Smoking risk assessment performed?: Yes Patient Tobacco Use Status: Never used Tobacco Depression screening performed: Yes Systolic BP not done?: No Diastolic BP not done?: No BMI screening not done: No Sexual Activity Screening ([facility] 153) Sexually active?: No Immunizations ([facility] 147, 117) Annual Influenza Vaccine: Yes Measles Antibody Test: No Mumps Antibody Test: No Rubella Antibody Test: No Varicella Antibody Test: No Anti Hepatitis A IgG Antigen test: No Anti Hepatitis B Virus Surface Ab test: No Fall Risk Screening ([facility] 139) Last assessed Fall Risk: 09/25/24 Fall risk assessment: No Falls in past year Dementia Assessment ([facility] 149) Cognitive assessment recorded: Yes Assessment of cognition with standardized tool: Yes (0 CIT ) Ophthalmol:Cataracts Visual Acuity (133) Visual acuity exam performed: Yes (see results) Coding Level of Care Code Medicare Subsequent (G0439) Est Pt Level 4 (98731) Diagnoses Encounter for subsequent annual wellness visit (AWV) in Medicare patient Z00.00 Atypical mole D22.9 Osteopenia, unspecified location M85.80 Osteopenia location: unspecified Blurred vision H53.8 Tinnitus of both ears H93.13 Laterality: bilateral Bilateral hearing loss, unspecified hearing loss type H91.93 Hearing loss type: unspecified Laterality: bilateral Primary hypertension I10 Hypertension type: primary hypertension Fatty liver K76.0 Mixed hyperlipidemia E78.2 Hyperlipidemia type: mixed hyperlipidemia 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
[2024-09-25 12:22] VITALS: BP 118/68; PULSE 78; RESP 12; O2SAT 98; BMI 29.4
== END 2024-09-25 13:18 | disposition home or self-care (01) ==
PROVIDERS: PCP Nurse Practitioner Family; Visit Provider Nurse Practitioner Family
DX: Z00.00 Encounter for general adult medical examination without abnormal findings (principal); D22.9 Melanocytic nevi, unspecified; M85.80 Other specified disorders of bone density and structure, unspecified site; J44.89 Other specified chronic obstructive pulmonary disease; H53.8 Other visual disturbances; H93.13 Tinnitus, bilateral; H91.93 Unspecified hearing loss, bilateral; I10 Essential (primary) hypertension; K76.0 Fatty (change of) liver, not elsewhere classified; E78.2 Mixed hyperlipidemia; E06.3 Autoimmune thyroiditis; F43.23 Adjustment disorder with mixed anxiety and depressed mood

== ENCOUNTER → 2024-09-25 11:55 | Outpatient (BNVA) | payer MEDICARE, SELFPAY | PROVIDERS: PCP Nurse Practitioner Family; Visit Provider Nurse Practitioner Family | DX: Z00.00 Encounter for general adult medical examination without abnormal findings (principal); J44.89 Other specified chronic obstructive pulmonary disease; F41.3 Other mixed anxiety disorders; F32.A Depression, unspecified; E03.9 Hypothyroidism, unspecified; I10 Essential (primary) hypertension; D22.9 Melanocytic nevi, unspecified; M85.80 Other specified disorders of bone density and structure, unspecified site; H53.8 Other visual disturbances; H93.13 Tinnitus, bilateral; H91.93 Unspecified hearing loss, bilateral; K76.0 Fatty (change of) liver, not elsewhere classified; E78.2 Mixed hyperlipidemia; E06.3 Autoimmune thyroiditis; F43.23 Adjustment disorder with mixed anxiety and depressed mood | CPT/HCPCS: 99212 ==

== ENCOUNTER → 2024-10-16 12:53 | Outpatient (BNV) | payer MEDICARE, SELFPAY | PROVIDERS: PCP Nurse Practitioner Family; Visit Provider Radiology Diagnostic Radiology | DX: M17.11 Unilateral primary osteoarthritis, right knee (principal) | CPT/HCPCS: 73562 ==

== ENCOUNTER 2024-10-16 13:19 | Outpatient (REF) | payer MEDICARE, SELFPAY ==
--- NOTE | ~2024-10-16 | XR_ITS ---
EXAMINATION: XR KNEE 3 VIEWS RIGHT HISTORY: M17.11 - Unilateral primary osteoarthritis, right knee COMPARISON: Comparison is made with the prior examination dated 06/23/2024. FINDINGS: Standing AP views of the bilateral knees and additional lateral and sunrise patellar views of the right knee are submitted. Osseous mineralization is normal. There is no fracture or dislocation. Again seen is severe osteoarthritis of the medial compartment with joint space narrowing and osteophyte formation. There is mild degenerative change of the patellofemoral compartment. There is no joint effusion. XR/XR knee RT 3V IMPRESSION: Severe osteoarthritis of the right knee as described. Electronically signed by: Fredi Joe MD 10/16/2024 01:30 PM [facility]
--- OUTSIDE RECORDS SUMMARY | 2024-10-16 17:12 | XMS_ITS | Continuity of Care Document ---
Author Organization [facility] Address [address] [address] [place] [address] Phone Care Team Providers Care Hadoop Analyst Name Role Phone Unavailable Unavailable Unavailable Allergies, [...] Date Provider Providers Copied on Encounter Eye [facility], [address] [address], [place], [place], [id number], tel:[phone] [facility] Patient is here for a 1 week post-op s/p LA BUL (chief complaint) Other specified postprocedural states Z98.890 2 No Information Referring Provider: Saray Torre, [address] [facility], [place], [address]. tel:[phone] [facility], [address] [address], [place], [place], [id number], tel:[phone] [place] No Information No Information Referring Provider: Saray Torre, [address] [facility], [place], [address]. 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 tel:[phone] [facility], [address] [address], [place], [place], [id number], tel:[phone] [place] Patient is here for decreased and fuzzy vision. 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 [address] [facility], [address], [place], [place], [id number], . tel:[phone] Referring Provider: Saray Torre, [address] [place], [address]. tel:[phone] Family History Family Member Type Diagnosis Age At Onset Brother Problem (finding) Cataracts Problem No relevant family history Mother Problem (finding) Cataracts Sister Problem (finding) Cataracts Payers Payer name Insurance type Covered alliance party ID Authoriza tion(s) Pres HP Senior Plan CAP CI [id number] Social History Type Description Quantity Date Captured [...] Z98.890; - See plan #1 Related to Wrens tochalasis of left upper eyelid H02.834 - [...] H02.423 - See plan #1 Related to Wrens tochalasis of right upper eyelid H02.831 - [...]
== END 2024-10-16 13:20 | disposition home or self-care (01) ==
LOC: HO.HOSX 13:19
PROVIDERS: PCP Nurse Practitioner Family; Visit Provider Physician Assistant
DX: M17.11 Unilateral primary osteoarthritis, right knee (principal)
CPT/HCPCS: 73562; 99212

== ENCOUNTER 2024-10-21 06:58 | Day surgery (SDC) | payer MEDICARE, SELFPAY ==
[2024-09-23 10:18] VITALS: BP 119/66; PULSE 61; RESP 18; O2SAT 97; BMI 29.0
[2024-09-23 13:50] LABS: MRSA Nasal PCR NEGATIVE (Negative); SA Nasal PCR POSITIVE (Negative)
[2024-10-21] VITALS (14 sets, daily range): BP systolic 93–124; BP diastolic 45–66; PULSE 56–82; RESP 16–20; TEMP 36.1–36.6; O2SAT 95–100; BMI 28.9; BMI 30.8
--- NOTE | ~2024-10-21 | XR_ITS ---
EXAMINATION: XR KNEE, RIGHT CLINICAL INFORMATION: rt tka COMPARISON: October 16, 2024 TECHNIQUE: Two views of the right knee. FINDINGS: Metallic prosthesis well seated in the osseous structures of the distal femur and proximal tibial plateau with normal alignment. There is cement of the tibial component. Skin drew in the prepatellar and extensor mechanism. No subcutaneous emphysema postprocedure. XR/XR knee RT 2V IMPRESSION: Total right knee arthroplasty prosthesis placement with normal alignment. Electronically signed by: Roe Simpson MD 10/21/2024 12:42 PM MARKUS FRANCISCO
[2024-10-21 08:02] LABS: Hematocrit 42.2 % (37.0-47.0); Hemoglobin 14.4 g/dl (12.0-16.0)
[2024-10-21] MEDS: Lactated Ringers 1,000 ML 100 ML IVCONT ×2 (08:19→15:21)
--- NOTE | 2024-10-21 08:35 | P.CONAN_ITS ---
Documented by User: Kirsty Braga NP 10/20/24 10:35 HPI - Anesthesia Eval Consult details Narrative: 74yo F for Right Knee Replacement Total, 10/21/24 PCP optimized Cardiac optimized No recent illness No CP/SOB with regular bike rides Asthma/COPD: daily scheduled inhaler, albuterol ~ 2-3x monthly PMF Active Problems Active Problems: All Active Problems Osteoarthritis of right knee (Acute) Preoperative cardiovascular examination (Acute) Hyponatremia (Acute) Hypercalcemia due to hypervitaminosis D (Acute) Bilateral primary osteoarthritis of knee (Acute) Environmental and seasonal allergies (Acute) Bilateral carotid bruits (Acute) Subclavian artery stenosis, right (Acute) Uterine fibroid (Acute) Fatty liver (Acute) Hiatal hernia with GERD without esophagitis (Acute) PAC (premature atrial contraction) (Acute) CAD (coronary atherosclerotic disease) (Acute) Osteopenia (Acute) Spinal stenosis of lumbar region with radiculopathy (Acute) 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 (Acute) Adjustment disorder with mixed anxiety and depressed mood (Acute) Asthma-chronic obstructive pulmonary disease overlap syndrome (Acute) Hyperlipidemia (Acute) Osteoarthritis of knees, bilateral (Acute) Hypertension (Acute) Past Medical History Medical History Subclavian artery stenosis, right CAD (coronary atherosclerotic disease) Skin cancer Lumbar stenosis Sciatica GERD (gastroesophageal reflux disease) Cough Wheezing Degenerative joint disease of low back Arthritis Thyroid disease Palpitation High cholesterol Hypertension Sinusitis COPD (chronic obstructive pulmonary disease) Asthma Family History Family History Father Substance abuse Hypertension Alcoholism Sister Diabetes Afib Breast cancer Maternal Grandmother Cardiovascular disease Paternal Grandfather Cardiovascular disease Mother Thyroid disorder Family history of problems with anesthesia: No Surgical History Surgical History H/O colonoscopy H/O section History of Problems with Anesthesia: No (Spinal headache after last in ) Social History Social History Household Members: Family and Children Housing: House Are you a primary career technical education instructor to a significant other at home: No Do you presently have visiting nurse or other home services: No Alcohol intake: never Patient Tobacco Use Status: Never used Tobacco e-Cigarette/Vaping Use: Never Used Use of substances other than those prescribed or required for medical reasons: No Have you been hit, kicked, punched, or otherwise hurt by someone within the past year? If so, by whom?: No Are you DNR?: No Advance Directives: No Advance Directives Information Provided: Yes Advance Directives on File: No Recently lost weight without trying: No Eating poorly because of decreased appetite: No Nutrition Risks: No Nutritional Risk Patient : No : No Poor oral hygiene: Yes (crowns in the molars) service: No Current occupational status: retired Cognitive needs: No Hearing needs: No Vision needs: No Meds Allergies Allergy/AdvReac Type Severity Reaction Status Date / Time hyaluronic acid Allergy systemic Verified 10/21/24 07:53 inflammation Home Medications ?Medication ?Instructions ?Recorded ?Confirmed ?Last Taken ?Type loratadine 10 mg tablet 10 mg PO DAILY 06/04/24 10/16/24 Unknown History duloxetine 30 mg capsule,delayed 30 mg PO BEDTIME 09/23/24 10/16/24 Unknown History release famotidine 20 mg tablet 20 mg PO BID PRN Acid Reflux 09/23/24 10/16/24 10/21/24 History fluticasone furoate 27.5 1 spray intranasal BEDTIME 09/23/24 10/16/24 Unknown History mcg/actuation nasal spray,suspension Exam Height,Weight and Vital Signs: Height 5 ft 3 in Weight 74.389 kg Last Vital Signs Pulse 61 09/23/24 10:18 Resp 18 09/23/24 10:18 BP 119/66 09/23/24 10:18 Pulse Ox 97 09/23/24 10:18 O2 Del Method Room Air 09/23/24 10:18 Pertinent Lab Results Pertinent Lab Results: Laboratory Tests 09/23/24 09:05 WBC 8.0 Hgb 14.1 Hct 41.4 Plt Count 385 Sodium 137 Potassium 3.9 Chloride 104 Carbon Dioxide 28 BUN 21 H Creatinine 0.77 Lab Results 09/23/24 10/16/24 Range/Units 10:30 13:29 Nasal Screen MRSA (PCR) NEGATIVE (Negative) Nasal S. aureus Screen POSITIVE A (Negative) Nasal MRSA/S.aureus Interp SEE NOTE Blood Type A Positive Antibody Screen NEGATIVE Narrative Narrative: EKG 08/2024 Details: EKG with underlying sinus rhythm at 80/Min; supraventricular ectopy; CA prolongation to 222 milliseconds; normal corrected QT. Per cardiac office visit: With regard to findings on other imaging studies that she has had in the past, CTA abdomen shows mild atherosclerotic changes. No aneurysm. In the ultrasound, question of right proximal subclavian artery stenosis. In the CTA of the neck, no large vessel occlusions. No significant narrowing of the subclavian arteries proximal to the vertebral artery origins on either side. Overall, there is a question of possible subclavian artery stenosis but not confirmed on CTA. He has no symptoms at all from this. Airway Loose/Missing/Broken Teeth: No (crowned molars) Assessment and Plan Assessment Anesthesia Assessment: Anesthesia Plan Discussed and PAT Visit Final Anesthetic Review Family History of Problems with Anesthesia: No History of Problems with Anesthesia: No (Spinal headache after last in ) Documented by User: Sirena Washington DO 10/21/24 09:15 [facility] Past Medical History Medical History Subclavian artery stenosis, right CAD (coronary atherosclerotic disease) Skin cancer Lumbar stenosis Sciatica GERD (gastroesophageal reflux disease) Cough Wheezing Degenerative joint disease of low back Arthritis Thyroid disease Palpitation High cholesterol Hypertension Sinusitis COPD (chronic obstructive pulmonary disease) Asthma Family History Family History Father Substance abuse Hypertension Alcoholism Sister Diabetes Afib Breast cancer Maternal Grandmother Cardiovascular disease Paternal Grandfather Cardiovascular disease Mother Thyroid disorder Family history of problems with anesthesia: No Surgical History Surgical History H/O colonoscopy H/O section History of Problems with Anesthesia: No Social History Social History Household Members: Family and Children Housing: House Are you a primary career technical education instructor to a significant other at home: No Do you presently have visiting nurse or other home services: No Alcohol intake: never Patient Tobacco Use Status: Never used Tobacco e-Cigarette/Vaping Use: Never Used Use of substances other than those prescribed or required for medical reasons: No Have you been hit, kicked, punched, or otherwise hurt by someone within the past year? If so, by whom?: No Are you DNR?: No Advance Directives: No Advance Directives Information Provided: Yes Advance Directives on File: No Recently lost weight without trying: No Eating poorly because of decreased appetite: No Nutrition Risks: No Nutritional Risk Patient : No : No Poor oral hygiene: Yes (crowns in the molars) service: No Current occupational status: retired Cognitive needs: No Hearing needs: No Vision needs: No Meds Allergies Allergy/AdvReac Type Severity Reaction Status Date / Time hyaluronic acid Allergy systemic Verified 10/21/24 07:53 inflammation Home Medications ?Medication ?Instructions ?Recorded ?Confirmed ?Last Taken ?Type loratadine 10 mg tablet 10 mg PO DAILY 06/04/24 10/16/24 Unknown History duloxetine 30 mg capsule,delayed 30 mg PO BEDTIME 09/23/24 10/16/24 Unknown History release famotidine 20 mg tablet 20 mg PO BID PRN Acid Reflux 09/23/24 10/16/24 10/21/24 History fluticasone furoate 27.5 1 spray intranasal BEDTIME 09/23/24 10/16/24 Unknown History mcg/actuation nasal spray,suspension Exam Exam Date and Time: 10/21/24 0835 Airway Mallampati Class: I TM Dist: >3cm Neck ROM: Full Loose/Missing/Broken Teeth: No (patient denies any loose or broken teeth) Heart: S1S2 Lungs: CTAB Assessment and Plan Assessment Anesthesia Assessment: Anesthesia Plan Discussed and Chart Reviewed Final Anesthetic Review Family History of Problems with Anesthesia: No History of Problems with Anesthesia: No NPO: Yes ASA Class: III Final Preanesthetic Review: No Changes in Pt Med Stat, Meds/Allgs Chart Reviewed, Consent Obtained/Reviewed and Anes Risks/Benef Reviewed Patient Risk: Intermediate Procedure Risk: Intermediate Anesthetic Plan Anesthetic Plan: Spinal and Regional Block (right adductor canal and right ipack block) Disposition: Standard PACU
--- NOTE | 2024-10-21 09:00 | MHC.SHP ---
Pre-Procedural Eval Section A - 24 Hr Update-Section A only Date of Service: 10/21/24 The patient is an INPATIENT: No Changes since office visit: No Cold of Flu in the past 2 weeks, No New Medical Problems, No Changes in Medication and No Patient answered all questions The patient has been examined within 24 hours of the surgical procedure. The History & Physical has been completed within 30 days and I have reviewed it.: Yes Section B - Complete if H&P > 30 days Chief Complaint: Bilateral primary osteoarthritis of knee Allergies: Allergies Allergy/AdvReac Type Severity Reaction Status Date / Time hyaluronic acid Allergy systemic Verified 10/21/24 07:53 inflammation Plan I have reviewed the history and physical and performed a pertinent physical examination on my patient. No changes have occurred unless specified. Time Spent With Patient Time: Total time managing care of this patient today ____ minutes.
[2024-10-21] MEDS: ceFAZolin Sodium/Dextrose,Iso 2 GM/50 ML PIGGYBACK IV ×2 (10:00→15:21)
[2024-10-21] MEDS: Acetaminophen 1,000 MG/100 ML PIGGYBACK 400 MG IV (10:40)
--- NOTE | 2024-10-21 11:51 | P.BOP_ITS ---
Brief Operative Note Date of Service: 10/21/24 Pre-op diagnosis: Right knee OA Post-op diagnosis: same Procedure: Right TKA Implants: Carolyn Triathlon cemented PS 10/20/12ps/29a Surgeon: Luis Johnson MD Anesthesia: GETA and local Was an Experimental Display Builder used for this Procedure?: Yes Experimental Display Builder: Blaise Tam Estimated blood loss (mL): 50 Tourniquet time (min): 62 IV fluids (mL): 1,000 Pathology: other Condition: stable Disposition: PACU
--- NOTE | 2024-10-21 11:54 | P.OP_ITS ---
Operative Note Operative Note Date of Service: 10/21/24 Narrative: Date of Service: 10/21/24 Pre-op diagnosis: Right knee OA Post-op diagnosis: same Procedure: Right TKA Implants: Gravel Switch Triathlon cemented PS 2//12ps/29a Surgeon: Luis Johnson MD Anesthesia: GETA and local Was an Control Tower Operator used for this Procedure?: Yes Control Tower Operator: Blaise Tam Estimated blood loss (mL): 50 Tourniquet time (min): 62 IV fluids (mL): 1,000 Pathology: other Condition: stable Disposition: PACU Procedure in detail: The patient was brought to the operating room and prepped and draped in standard sterile fashion. A time-out was called to identify proper site proper procedure proper surgeon and IV antibiotics were administered. 1 g of IV tranexamic acid was administered. I began by making a midline incision to the retinaculum and performed a medial parapatellar arthrotomy. The patella was translated laterally and the knee was flexed up. There was severe eburnation of the medial compartment. I performed a small medial peel and resected the infrapatellar fat pad. Lynn's line was then used to drill my intramedullary femoral guide and my distal femur cut of 12mm (10 deg flexion contracture) was made in 5 degrees of valgus while protecting the soft tissues. I then measured a # 2 femur and placed my cutting guide and made my anterior posterior and chamfer cuts protecting the soft tissues at all times. I then made my box but removing the PCL. Once I was satisfied with my cuts I turned my attention to the tibia. I removed the meniscus medially and laterally and , using an external cutting guide, in line with the tibial crest and the third ray, I made my distal tibial cut in 0 deg slope of while protecting the posterior soft tissues at all times. An extension block was used to confirm appropriate amount of bony resection. I then sized a #3 tibia and once I was satisfied that there was complete tibial coverage I placed my trial and with the trial femur in place took the knee through range of motion. I was satisfied with the extension and flexion as well as the balance at 0, 30 and 90 degrees. I then turned my attention to the patella where I removed 1 cm from the undersurface of the patella and then trialed a 29a patellar button. Again the knee was taken through range of motion I was satisfied with the tracking. I then prepared the tibia with a drill and punch. A femoral bone plug was placed and the knee was irrigated copiously. I then cemented the patella, tibia and femur in standard fashion. Axial compression and a clamp were used while the cement dried. Once the cement was hard on the back table all excess cement was removed and I trialed different inserts until I selected a #12ps insert. The final insert was placed and local TXA was administered. The knee was then closed with a running Quill suture, a 3 0 Vicryl and drew on the skin. Patient was then placed in sterile dressing and brought to recovery room in stable condition there were no known complications.
--- NOTE | 2024-10-21 15:11 | P.CONHOSP_ITS ---
History of Present Illness Data of Consult Service Date: 10/21/24 Primary Care Provider: Analia Hamlin, [facility]- HPI 74-year-old woman with a history of hypertension, hypothyroidism admitted by Orthopedic surgery and is status post right total knee arthroplasty. Surgery was unremarkable. Patient has been able to eat and drink without any nausea or vomiting. She has no acute medical complaints at this time she was hemodynamically stable. Review of Systems 2 Review of Systems: Denies any recent fever chills or decrease in appetite respiratory denies any shortness of breath or cough cardiovascular Denies chest pain gastrointestinal denies any dysphagia abdominal pain nausea vomiting or diarrhea genitourinary denies any dysuria frequency or hematuria musculoskeletal POST OP neuropsych denies any weakness or seizures all other systems reviewed are negative [facility] Medical History Subclavian artery stenosis, right CAD (coronary atherosclerotic disease) Skin cancer Lumbar stenosis Sciatica GERD (gastroesophageal reflux disease) Cough Wheezing Degenerative joint disease of low back Arthritis Thyroid disease Palpitation High cholesterol Hypertension Sinusitis COPD (chronic obstructive pulmonary disease) Asthma Family History Father Substance abuse Hypertension Alcoholism Sister Diabetes Afib Breast cancer Maternal Grandmother Cardiovascular disease Paternal Grandfather Cardiovascular disease Mother Thyroid disorder Surgical History H/O colonoscopy H/O section Social History Household Members: Children Household Members Other:: 3 Housing: House Are you a primary health care specialist to a significant other at home: No Do you presently have visiting nurse or other home services: No Alcohol intake: never Patient Tobacco Use Status: Never used Tobacco e-Cigarette/Vaping Use: Never Used service: No Current occupational status: retired Cognitive needs: No Hearing needs: No Vision needs: No Meds Allergies Allergy/AdvReac Type Severity Reaction Status Date / Time hyaluronic acid Allergy systemic Verified 10/21/24 07:53 inflammation Active Medications: Current Medications Acetaminophen (Acetaminophen 325 Mg Tablet) 650 mg PO Q6H PRN PRN Reason: Pain, Mild 1-3,fever,headache Albuterol Sulfate (Albuterol Sulfate 90 Mcg 8 Gm Inhaler) 2 puff INHALE Q4H PRN PRN Reason: shortness of breath or wheezing Aspirin (Aspirin 325 Mg Tablet) 325 mg PO BID [facility] Celecoxib (Celecoxib 200 Mg Capsule) 200 mg PO BID [facility] Docusate Sodium (Docusate Sodium 100 Mg Capsule) 100 mg PO BID [facility] Duloxetine HCl (Duloxetine Hcl 30 Mg Capsule.Dr) 30 mg PO BEDTIME [facility] Ezetimibe (Ezetimibe 10 Mg Tablet) 10 mg PO DAILY [facility] Famotidine (Famotidine 20 Mg Tablet) 20 mg PO BID PRN PRN Reason: Acid Reflux Hydromorphone HCl (Hydromorphone Hcl 0.5 Mg/0.5 Ml Syringe) 0.25 mg IVPUSH Q4H PRN; Protocol PRN Reason: Pain, Severe (Pain Scale 7-10) Lactated Ringer's (Lr) 1,000 mls @ 100 mls/hr IVCONT .Q10H [facility] Cefazolin Sodium/Dextrose (Ancef) 2 gm in 50 mls @ 100 mls/hr IV POSTOP ONE Stop: 10/21/24 16:29 Levothyroxine Sodium (Levothyroxine Sodium 88 Mcg Tablet) 88 mcg PO DAILY [facility] Loratadine (Loratadine 10 Mg Tablet) 10 mg PO DAILY [facility] Montelukast Sodium (Montelukast Sodium 10 Mg Tablet) 10 mg PO BEDTIME [facility] Non-Formulary Medication (Fluticasone Furoate) 1 spray NOSTRIL-B BEDTIME [facility] Non-Formulary Medication (Fluticasone Furoate [Arnuity Ellipta]) 1 inhalation INHALE DAILY [facility] Ondansetron HCl (Ondansetron Hcl 4 Mg/2 Ml Vial) 4 mg IVPUSH Q8H PRN PRN Reason: Nausea and Vomiting Oxycodone HCl (Oxycodone Hcl Immed Release 5 Mg Tablet) 5 mg PO Q4H PRN PRN Reason: Pain, Moderate(Pain Scale 4-6) Oxycodone HCl (Oxycodone Hcl Er 10 Mg Tab.Er.12h) 10 mg PO BID [facility] Sodium Chloride (0.9 % Sodium Chloride Flush 3 Ml Syringe) 3 ml IVFLUSH QSHIFT [facility] Home Medications ?Medication ?Instructions ?Recorded ?Confirmed ?Last Taken ?Type loratadine 10 mg tablet 10 mg PO DAILY 06/04/24 10/16/24 Unknown History duloxetine 30 mg capsule,delayed 30 mg PO BEDTIME 09/23/24 10/16/24 Unknown History release famotidine 20 mg tablet 20 mg PO BID PRN Acid Reflux 09/23/24 10/16/24 10/21/24 History fluticasone propionate 50 1 spray intranasal BEDTIME 10/21/24 10/21/24 Unknown History mcg/actuation nasal spray,suspension Physical Exam 2 Vital Signs and Narrative: Vital Signs: Last Vital Signs Temp 97.2 F 10/21/24 14:49 Pulse 60 10/21/24 14:49 Resp 18 10/21/24 14:49 BP 124/64 10/21/24 14:49 Pulse Ox 96 10/21/24 14:49 O2 Del Method Room Air 10/21/24 14:49 O2 Flow Rate 3 10/21/24 11:53 BMI result Body Mass Index 28.9 Appearing in no acute distress head is normocephalic atraumatic eyes pupils are PERRLA sclera is anicteric mouth throat mucous membranes are intact and moist neck is supple no lymphadenopathy, no JVD noted lung sounds are clear to auscultation heart regular rate rhythm, clear S1, S2 positive bowel sounds, abdomen is soft, nontender neuro patient is alert x3, no focal deficits [facility]K surgical Results Labs 10/21/24 07:54 Imaging Radiologist's Impressions: Impressions Knee X-Ray 10/21/24 11:35 IMPRESSION: Total right knee arthroplasty prosthesis placement with normal alignment. Electronically signed by: Roe Simpson MD 10/21/2024 12:42 PM [facility] Assessment and Plan (1) Hypertension: Qualifiers: Hypertension type: primary hypertension Qualified Code(s): I10 - Essential (primary) hypertension Status: Acute Plan 74 year old women admitted by orthopedic surgery and is s/p RTKA RTKA management as per surgical team pain management HTN continue Losartan Hypothyroidism continue levothyroxine Obesity class I. BMI 30.9 Weight management DVT prophylaxis with full dose asa
--- NOTE | 2024-10-21 15:17 | PHA.MEDREC ---
Addendum entered by Vasile Womack 10/21/24 15:21: reviewed Original Note: Pharmacy Consult ? Medication Reconciliation Pharmacy has reviewed the medication reconciliation done by nursing. Spoke to patient to confirm med list. patient states she is no longer taking Diclofenac sod 75 mg, and Arestin 1 mg. Patient states she last too her medications yesterday except Lavothroxine 88 mcg was this morning.
[2024-10-21] MEDS: 0.9 % Sodium Chloride Flush 3 ML SYRINGE IVFLUSH ×2 (15:28→20:56)
[2024-10-21] MEDS: oxyCODONE HCl Immed Release 5 MG TABLET PO ×2 (17:16→20:54)
--- NOTE | 2024-10-21 18:11 | PC.NURSE ---
Pt was able to stand pivot to bedside commode with 1A and walker with good effort. Pt voided a moderate amount. Pt then stand pivoted to chair and sat up for dinner. Pt tolerated well.
[2024-10-21] MEDS: Fluticasone Propionate 250 MCG BLST.W.DEV 1 PUFF INHALE (19:58)
[2024-10-21] MEDS: oxyCODONE HCl ER 10 MG TAB.ER.12H PO (20:54)
[2024-10-21] MEDS: Montelukast Sodium 10 MG TABLET PO (20:54)
[2024-10-21] MEDS: Docusate Sodium 100 MG CAPSULE PO (20:54)
[2024-10-21] MEDS: Celecoxib 200 MG CAPSULE PO (20:54)
[2024-10-21] MEDS: DULoxetine HCl 30 MG CAPSULE.DR PO (20:55)
--- NOTE | 2024-10-21 21:07 | PM.DS ---
DS: Providers Provider Date of Service: 10/22/24 Date of discharge: 10/22/24 Primary care physician: LINH Hair- Consults: 10/21/24 14:43 Consult to Hospitalist Routine Comment: Consulting Provider: [facility] Hospitalists Reason For Exam: htn DS: Diagnosis Discharge Diagnosis (1) Hypertension: Status: Acute DS: Summary Hospital Course Hospital Course: The patient underwent a successful right total knee arthroplasty, they were transferred to PACU and then to the floor to recover. During their stay, their vitals were stable, afebrile at 97.1. Labs were unremarkable, H/H 12.5/36.5. POD 1 they were started on Aspirin 325mg po bid for DVT ppx, they also received Physical Therapy services twice a day. Prior to discharge, their dressing was clean dry and intact, and the plan was to be discharged home with VNA services. Time Attestation Discharge Coordination Time (in mins): 30 Quality: Safe Use of Opioids Does Pt have an Active Cancer Diagnosis on the Problem List?: No Quality: Stroke Does the patient have a stroke diagnosis?: No Physical Exam Vital Signs: Vital Signs: Last Vital Signs Temp 97.2 F 10/21/24 19:45 Pulse 82 10/21/24 20:00 Resp 18 10/21/24 20:00 BP 120/60 10/21/24 19:45 Pulse Ox 95 10/21/24 19:45 O2 Del Method Room Air 10/21/24 19:45 O2 Flow Rate 3 10/21/24 11:53 BMI result Body Mass Index 30.8 Const: General: cooperative, healthy appearing and no acute distress Resp: Effort & Inspection: normal respiratory effort and able to speak in complete sentences Cardio: Rate: regular rate Peripheral pulses: Peripheral pulses 2+ throughout GI: Palpation (GI): Soft to palpation Skin: Lesions: no lesions Rashes: no rashes Extrem: Other: right knee dressing is c/d/i. Able to dorsi/plantar flex. Calf is supple and nontender. Sensation intact. Pedal pulse intact. DS: Data Data Completed and Pending Pending studies at discharge: Pending at discharge 10/21/24 10:33 Surgical [PTH] Routine Labs on day of discharge: Laboratory Results - last 24 hr 10/21/24 07:54 Hgb 14.4 Hct 42.2 Discharge Plan Discharge Patient Disposition: Home, Self-Care Referrals: Analia Hamlin, [facility] [Primary Care Provider] - 1 Week Discharge Medications: New celecoxib 200 mg Capsule 200 mg PO BID 30 Days Qty: 60 0RF acetaminophen 325 mg Tablet 650 mg PO Q6H PRN (Reason: Pain, Mild 1-3,Fever,Headache) 30 Days Qty: 240 0RF aspirin 325 mg Tablet 325 mg PO BID 42 Days Qty: 84 0RF docusate sodium 100 mg Capsule 100 mg PO BID 30 Days Qty: 60 0RF oxycodone 5 mg Tablet 5 mg PO Q4H PRN (Reason: Pain, Moderate(Pain Scale 4-6)) 7 Days Qty: 42 0RF Rx Instructions: Partial Fill upon patient request. Continued (DME) walker Misc See Rx Instructions .MEDSUPPLY Qty: 1 0RF Rx Instructions: Folding Front wheeled walker duration 99 days baclofen 10 mg tablet 10 mg PO BEDTIME PRN (Reason: muscle spasm) Qty: 14 2RF duloxetine 30 mg capsule,delayed release(DR/EC) 30 mg PO BEDTIME famotidine 20 mg tablet 20 mg PO BID PRN (Reason: Acid Reflux) fluticasone propionate 50 mcg/actuation [place],Suspension 1 spray INTRANASAL BEDTIME Rx Instructions: administer into each nostril loratadine 10 mg tablet 10 mg PO DAILY Arnuity Ellipta 200 mcg/actuation blister with device 1 inh inhalation DAILY 90 Days Qty: 90 2RF ezetimibe [Zetia] 10 mg tablet 10 mg PO DAILY Qty: 90 1RF albuterol sulfate 90 mcg/actuation HFA aerosol inhaler 2 puff inhalation Q4H PRN (Reason: shortness of breath or wheezing) Qty: 8.5 2RF levothyroxine 88 mcg tablet 88 mcg PO DAILY 90 Days Qty: 90 1RF losartan-hydrochlorothiazide 50-12.5 mg tablet 1 tab PO DAILY Qty: 90 0RF montelukast 10 mg tablet 10 mg PO BEDTIME Qty: 90 2RF Discharge Orders: Discharge Order (Routine); Ordered 10/22/24 Ordered By: Jo Cole Diet: Advance to usual diet Activity on Discharge: Use cane or walker Activity Restrictions/Additional Instructions: Physical Therapy for ROM 0-120, quad strength, gait training. Use walker for ambulation Limit stair climbing, No shower, No tub bath, No driving Continue anticoagulant x 6 weeks Keep Aquacel dressing clean, dry and intact. Follow up with orthopedics in 2 weeks Print Language: Spanish
--- NOTE | 2024-10-21 21:08 | W.MHC.F2F ---
Service Date Service Date: 10/21/24 Encounter Date of encounter: 10/22/24 Reasons for Services Signs and symptoms assessed: s/p RTKA Pt. is considered homebound due to recent surgery. Unable to drive, poor balance, poor gait mechanics. Reason for physical therapy: home safety and mobility, therapeutic exercises, restore joint function, gait/transfer training and ADL training Homebound: Leaving the home is medically contraindicated at this time without the asist of a device and/or another person due th the listed conditions above and below. Reason homebound: unsteady gait / fall risk, leg weakness, pain with ambulation, poor balance / fall risk and unable to drive Certification: Based on the above findings, I certify that this patient is confined to the home and needs intermittent nursing home care, physical therapy and/or speech therapy, or continues to need occupational therapy. The patient is under my care, and I have initiated the establishment of the plan of care. The patient will be followed by a physician who will periodically review the plan of care. Time Spent With Patient Time: Total time managing care of this patient today ____ minutes.
[2024-10-22] VITALS (7 sets, daily range): BP systolic 112–130; BP diastolic 53–61; PULSE 64–70; RESP 16; TEMP 36.1–36.4; O2SAT 94–97
[2024-10-22] MEDS: oxyCODONE HCl Immed Release 5 MG TABLET PO ×3 (00:57→11:29)
[2024-10-22] MEDS: Lactated Ringers 1,000 ML 100 ML IVCONT (00:57)
[2024-10-22 06:32] LABS: MANUAL DIFF FLAG NO
[2024-10-22 06:35] LABS: Basophils Percent Auto 0.2 % (0-2); Hematocrit 36.5 % (37.0-47.0); Hemoglobin 12.5 g/dl (12.0-16.0); Imm Gran Abs Auto 0.11 X10*3/uL (0.00-0.03); Imm Gran Pct Auto 0.6 % (0.0-0.4); Lymphocytes Absolute Auto 1.2 X10*3/uL (1.2-4.9); Lymphocytes Percent Auto 6.9 % (20-40); Mean Corpuscular HGB Conc 34.2 g/dl (31.0-35.0); Mean Corpuscular Hemoglobin 29.4 pg (27.0-33.0); Mean Corpuscular Volume 85.9 fL (80.0-98.0); Mean Platelet Volume 8.8 fL (9.4-12.3); Monocytes Absolute Auto 0.8 X10*3/uL (0.1-1.2); Monocytes Percent Auto 4.4 % (2-11); Neutrophils Absolute Auto 15.9 x10*3/uL (2.0-8.3); Neutrophils Percent Auto 87.9 % (45-73); Platelet Count 324 X10*3/uL (160-400); Red Blood Count 4.25 X10*6/uL (4.20-5.50); Red Cell Distribution Width 13.4 % (11.0-16.0); White Blood Count 18.1 X10*3/uL (4.8-10.8)
[2024-10-22 06:53] LABS: Anion Gap 11 (12-20); Blood Urea Nitrogen 15 mg/dL (9-16); Carbon Dioxide 25 mmol/L (22-29); Chloride 102 mmol/L (96-108); Creatinine Clr Calc Pharmacy 77.8; Estimated Glomerular Filt Rate > 60; Glucose Fasting 143 mg/dL (60-99); Potassium 4.4 mmol/L (3.3-5.1); Sodium 134 mmol/L (135-145)
[2024-10-22] MEDS: Levothyroxine Sodium 88 MCG TABLET PO (07:28)
[2024-10-22] MEDS: Ezetimibe 10 MG TABLET PO (07:28)
[2024-10-22] MEDS: Celecoxib 200 MG CAPSULE PO (07:28)
[2024-10-22] MEDS: Loratadine 10 MG TABLET PO (07:28)
[2024-10-22] MEDS: Docusate Sodium 100 MG CAPSULE PO (07:29)
[2024-10-22] MEDS: oxyCODONE HCl ER 10 MG TAB.ER.12H PO (07:30)
[2024-10-22] MEDS: Fluticasone Propionate 250 MCG BLST.W.DEV 1 PUFF INHALE (08:01)
--- NOTE | 2024-10-22 08:04 | HO.POSTANES ---
Post Anesthesia Evaluation Post Anesthesia Evaluation Date of Service: 10/22/24 Vital Signs: Vital Signs Temp Pulse Resp BP Pulse Ox O2 Del Method 10/22/24 08:02 64 16 10/22/24 07:56 64 113/53 L 95 10/22/24 07:22 96.9 F 64 16 113/53 L 95 Room Air 10/22/24 04:00 97.1 F 69 16 130/61 97 Room Air 10/22/24 00:00 96.9 F 67 16 123/58 L 94 Room Air Anesthesia: Spinal and Nerve Block (right adductor canal block and right ipack block) Mental Status: Awake Pain Control: Satisfactory Nausea/Vomiting: None Hydration: Adequate Anesthesia-Related Issues: No Anes. Related Issues
[2024-10-22] MEDS: Aspirin 325 MG TABLET PO (08:55)
--- NOTE | 2024-10-22 09:04 | MHC.CM.PN ---
Patient lives in a home with family (son/DIL/grandchildren). Independent w/ all care. Ambulates w/ cane at baseline, has a walker to use post-op. PCP Analia Hamlin Patient provided copy of HCP naming son Jian as HCA. DP: PT rec home w/ services. [facility] has accepted per patient preference. Patient medically cleared for dc. Son will transport ~4pm. RN aware.
== END 2024-10-22 14:17 | disposition home or self-care (01) ==
LOC: HO.SSS 06:59 → HO.S3 14:00
PROVIDERS: Physician Assistant; PCP Nurse Practitioner Family; Visit Provider Orthopaedic Surgery
PROC: (CPT 27447; principal; 2024-10-21 09:30)
DX: M17.11 Unilateral primary osteoarthritis, right knee (principal); I10 Essential (primary) hypertension; E78.00 Pure hypercholesterolemia, unspecified; E03.9 Hypothyroidism, unspecified; C44.90 Unspecified malignant neoplasm of skin, unspecified; I25.10 Atherosclerotic heart disease of native coronary artery without angina pectoris; I77.1 Stricture of artery; J44.9 Chronic obstructive pulmonary disease, unspecified; J32.9 Chronic sinusitis, unspecified; R06.2 Wheezing; R05.9 Cough, unspecified; R00.2 Palpitations; K21.9 Gastro-esophageal reflux disease without esophagitis; M48.061 Spinal stenosis, lumbar region without neurogenic claudication; M54.40 Lumbago with sciatica, unspecified side; Z79.51 Long term (current) use of inhaled steroids; Z79.899 Other long term (current) drug therapy; Z88.8 Allergy status to other drugs, medicaments and biological substances
CPT/HCPCS: 27447; 36415; 73560; 80048; 85014; 85018; 85025; 86850; 86900; 86901; 87640; 87641; 88305; 88311; 94640; 97110; 97116; 97162; C1713; C1776; J0131; J0665; J0690; J1100; J2003; J2250; J2371; J2405; J2704; J3010; J7120

== ENCOUNTER → 2024-10-21 06:58 | Outpatient (BNV) | payer MEDICARE, SELFPAY | PROVIDERS: PCP Nurse Practitioner Family; Visit Provider Orthopaedic Surgery | DX: Z47.1 Aftercare following joint replacement surgery (principal); Z96.651 Presence of right artificial knee joint; I10 Essential (primary) hypertension | CPT/HCPCS: 27447; 99024; G0180 ==

== ENCOUNTER → 2024-10-21 06:58 | Outpatient (BNV) | payer MEDICARE, SELFPAY | PROVIDERS: PCP Nurse Practitioner Family; Visit Provider Nurse Practitioner Acute Care | DX: I10 Essential (primary) hypertension (principal); Z96.651 Presence of right artificial knee joint | CPT/HCPCS: 99222 ==

== ENCOUNTER → 2024-10-21 11:35 | Outpatient (BNV) | payer MEDICARE, SELFPAY | PROVIDERS: PCP Nurse Practitioner Family; Visit Provider Radiology Diagnostic Radiology | DX: Z96.651 Presence of right artificial knee joint (principal) | CPT/HCPCS: 73560 ==

== ENCOUNTER 2024-10-28 14:04 | Outpatient (AMB) | payer MEDICARE, SELFPAY ==
--- NOTE | 2024-10-28 14:09 | A.OFFVIS_ITS ---
Intake Visit Reasons: PO: R TKA w/NE 10/21/24, bandage change Intake Note: Stacie is a 74 year old female who presents today for a bandage change s/p right TKA 10/21/24 NE. Patient reports that PT noticed her bandage saturated. Allergies hyaluronic acid Allergy (Verified 10/28/24 14:14) systemic inflammation HPI HPI PO: R TKA w/NE 10/21/24, bandage change: Details: Ms. Huber is a 74-year-old female who presents to the office today for right total knee arthroplasty bandage change that was performed on 10/21/[address] Johnson. Patient reports that the bandage began to become saturated and physical therapy recommended she contact our office for bandage change. [facility] Medical History (Updated 10/24/24 @ 00:01 by Brock Man) Subclavian artery stenosis, right CAD (coronary atherosclerotic disease) Skin cancer Lumbar stenosis Sciatica GERD (gastroesophageal reflux disease) Cough Wheezing Degenerative joint disease of low back Arthritis Thyroid disease Palpitation High cholesterol Hypertension Sinusitis COPD (chronic obstructive pulmonary disease) Asthma Surgical History (Updated 10/28/24 @ 14:45 by Jo Cole PA-C) H/O colonoscopy H/O section Family History Father Substance abuse Hypertension Alcoholism Sister Diabetes Afib Breast cancer Maternal Grandmother Cardiovascular disease Paternal Grandfather Cardiovascular disease Mother Thyroid disorder Social History Household Members: Children Household Members Other:: 3 Both parents involved: No Caregiver staying overnight: No Housing: House Are you a primary patient care manager to a significant other at home: No Do you presently have visiting nurse or other home services: No 75 years or older and lives alone: No Alcohol intake: never Patient Tobacco Use Status: Never used Tobacco e-Cigarette/Vaping Use: Never Used service: No Current occupational status: retired Cognitive needs: No Hearing needs: No Vision needs: No Review of Systems Const All systems reviewed & are unremarkable except as noted in HPI and below Physical Exam Const General: cooperative, healthy appearing and no acute distress Resp Effort & Inspection: normal respiratory effort and able to speak in complete sentences Cardio Rate: regular rate Peripheral pulses: Peripheral pulses 2+ throughout Skin Lesions: no lesions Rashes: no rashes Extrem Other: Right knee incision site is clean dry and intact. [place] intact. No surrounding erythema or drainage. No signs of infection. NVI. Quality Reporting (2019) Adult ([facility] 138/11/08/68) Smoking risk assessment performed?: Yes Patient Tobacco Use Status: Never used Tobacco Assessment & Plan Assessment & Plan (1) S/P total knee arthroplasty: Code(s): Z96.659 - Presence of unspecified artificial knee joint Category: Surgical Plan Ms. Huber is a 74-year-old female who presents to the office today for right total knee arthroplasty bandage change that was performed on 10/21/[address] Johnson. Patient reports that the bandage began to become saturated and physical therapy recommended she contact our office for bandage change. While in the office today the Aquacel dressing had some mild to moderate staining at the distal incision site. The bandage was removed and the incision site was cleaned with ChloraPrep. There are no signs of infection and drew remain intact. A new Aquacel dressing was placed over the incision site. The patient will follow up at her normally scheduled follow up appointment, sooner if needed. Coding Level of Care Code Global (28162) Diagnoses S/P total knee arthroplasty Z96.659
--- OUTSIDE RECORDS SUMMARY | 2024-10-28 15:04 | XMS_ITS | Continuity of Care Document ---
Author Organization [facility] Address [address] [address] [place] [address] Phone Care Team Providers Care Size Changer Name Role Phone Unavailable Unavailable Unavailable Allergies, [...] Date Provider Providers Copied on Encounter [facility], [address] [address], [place], [place], [id number], tel:[phone] [facility] Patient is here for a 1 week post-op s/p LA BUL (chief complaint) Other specified postprocedural states Z98.890 2 No Information Referring Provider: Saray Torre, [address] [facility], [place], [address]. tel:[phone] [facility], [address] [address], [place], [place], [address], tel:[phone] [place] No Information No Information Referring Provider: Saray Torre, [address] [facility] [address], [place], [address]. 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 tel:[phone] [facility], [address] [address], [place], [place], [address], tel:[phone] [place] Patient is here for decreased and fuzzy vision. 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 [address] [facility], [address], [place], [place], [id number], . tel:[phone] Referring Provider: Saray Torre, [address] [place], [address]. tel:[phone] Family History Family Member Type Diagnosis Age At Onset Sister Problem (finding) Cataracts Mother Problem (finding) Cataracts Brother Problem (finding) Cataracts Problem No relevant family history Payers Payer name Insurance type Covered green party ID Authoriza tion(s) Pres HP Senior Plan CAP CI [id number] Social History Type Description Quantity Date Captured [...] Z98.890; - See plan #1 Related to [place] tochalasis of right upper eyelid H02.831 - [...] H02.831 - See plan #1 Related to [place] tochalasis of left upper eyelid H02.834 - [...]
== END 2024-10-28 14:13 | disposition home or self-care (01) ==
PROVIDERS: PCP Nurse Practitioner Family; Visit Provider Physician Assistant
DX: Z96.659 Presence of unspecified artificial knee joint (principal)
CPT/HCPCS: 99024

== ENCOUNTER → 2024-10-28 14:04 | Outpatient (BNVA) | payer MEDICARE, SELFPAY | PROVIDERS: PCP Nurse Practitioner Family; Visit Provider Physician Assistant | DX: Z47.1 Aftercare following joint replacement surgery (principal); Z96.651 Presence of right artificial knee joint | CPT/HCPCS: 99212 ==

== ENCOUNTER 2024-10-31 08:53 | Outpatient (AMB) | payer MEDICARE, SELFPAY ==
--- NOTE | 2024-10-31 08:56 | A.OFFPC_ITS ---
Vital Signs 3 10/31/24 09:01 10/31/24 09:46 Height 5 ft 3 in BMI Reason not done Patient refused/unable BP 98/66 98/42 L Blood Pressure Location Lt brachial Lt brachial Position Sitting Sitting Respiration 12 Pulse 74 Pulse Source Pulse Oximeter Temp 98.5 F Temp Source Oral Pulse Oximetry (%) 96 Oxygen Delivery Method Room Air Intake Visit Reasons: HDF - KNEE REPLACMENT -[facility] Intake Note: HDF from right knee replacement at [facility] Hack Driver Required: No Allergies hyaluronic acid Allergy (Verified 10/31/24 09:31) systemic inflammation Medication List - Last Reconciled 10/31/24 by Analia Hamlin, IRON CASTER- acetaminophen 650 mg (2 x 325 mg) PO Q6H PRN 30 days albuterol sulfate 90 mcg/actuation 2 puffs inhalation Q4H PRN aspirin 325 mg PO BID 42 days celecoxib 200 mg PO BID 30 days docusate sodium 100 mg PO BID 30 days duloxetine 30 mg PO BEDTIME ezetimibe (Zetia) 10 mg PO DAILY famotidine 20 mg PO BID PRN fluticasone furoate 200 mcg/actuation (Arnuity Ellipta) 1 inh inhalation DAILY 90 days fluticasone propionate 50 mcg/actuation 1 spray intranasal BEDTIME levothyroxine 88 mcg PO DAILY 90 days loratadine 10 mg PO DAILY losartan-hydrochlorothiazide 50-12.5 mg 1 tab PO DAILY montelukast 10 mg PO BEDTIME oxycodone 5 mg PO Q4H PRN 7 days walker Folding Front wheeled walker duration 99 days Tobacco use date assessed: 10/31/24 Dental Screening Dental Screen Date: 10/31/24 Did you have a dental visit in the last 12 months?: Yes Did you have a dental problem in the last 6 months where you did not have access to dental care?: No HPI HPI Comments 2 History of Present Illness0 Details Here today for a Transitional Care Management Visit Discharge summary reviewed. 74-year-old female underwent successful right total knee arthroscopy at [facility], vital signs were stable during her overnight stay, hemoglobin and hematocrit 12.5 and 36.5, started on aspirin 325 mg p.o. b.i.d. for DVT prophylaxis, sent home with visiting nurse and physical therapy. New medications per scribed include Celebrex 200 mg p.o. b.i.d., acetaminophen 325 mg take 2 tablets p.o. q.6 hours p.r.n. pain, aspirin 325 mg p.o. b.i.d. times 42 days, Colace 100 mg p.o. b.i.d. p.r.n. constipation, oxycodone 5 mg p.o. q.4 hours PRN pain she was also sent home with a walker advised to limit stair climbing no shower no tub bathroom driving continue anticoagulation for 6 weeks she was seen by [facility] on 10/28/2024 for saturated dressing. At that time the bandage was removed and the incision site was cleaned there was no signs of infection she was advised to follow up for her routine 2 week postop appointment and has already been scheduled. Presents today Started w/ generalized joint aches this AM . Denies fever, chills, constititional sx. - The patient details redness persisting at the incision site without acute changes. - On exam low blood pressure, presumably linked to medication, but without associated symptoms like dizziness. - Medications include aspirin and interm ittent opioid use, alongside stool softeners for constipation management. Normal bowel, bladder. Denies chest pain, sob. Taking all meds as directed. Has MOLST. Full code. Form scanned HCP also uploaded to chart. Admission Date: 10.21.24 Discharge Date 10/22/24 Hospital: [facility] Date of interactive contact with Nurse Cespedesgator: as documented in chart Pending diagnostic tests/treatments: none Pending consults: none DME: whit PT/OT/SOFTWARE CLIENT ARCHITECT: PT & SN Home Health Aide/TRAFFIC ATTENDANT: NA Referrals:None Medications reconciled & updated. During todays TCM visit, the d/c summary was reviewed, along with the need for or follow-up on pending diagnostic tests and treatments, as necessary interaction with other health career center director who will assume or reassume care of the beneficiary?s system-specific problems was done or is being worked on, education was provided to the beneficiary, family, guardian, and/or caregiver, referrals to establish or re-establish and arrange needed community resources we completed, assistance in scheduling required follow-up with community providers and services & finally updated medication list given to patient/caregiver Exam Awake alert oriented, no acute distress Regular rate and rhythm Lung sounds dim throughout, clear Bilateral lower extremities positive varicosities, normal pedal pulses, LLE no edema; RLE see picture. No warmth. Amb w walker Nonfocal nuero exam Mood and affect appropriate Discussion I engaged in a detailed discussion with the patient regarding the current management of her postoperative condition. I highlighted the probable contribution of recent physical activities to her increased pain and reassured her that this is not uncommon post-surgery. We discussed the low blood pressure reading, likely exacerbated by pain medication, and stressed the importance of ensuring adequate hydration and potentially increasing dietary salt intake. Furthermore, I validated her concerns over insufficient pain control and have initiated a refill request for her opioid medication. We reiterated the importance of monitoring her symptoms closely and provided instructions for alerting us to any new or persistent symptoms. Assessment and Plan 74 year old female with a history of rec ent surgical intervention presenting with postoperative pain and inflammation. The present challenges include managing her pain effectively while addressing noted swelling and inflammation. Current symptoms may stem from recent physical exertion post-physical therapy or are within the expected range of postoperative recovery. Observations of low blood pressure require monitoring, potentially influenced by pain medications. 1. Inflammation Monitor for any changes in the redness of the incision site, and continue with the current plan of care. Use ice and elevation to manage symptoms, and report new symptoms to the healthcare provider promptly. 2. Swelling And Bruising Ongoing assessment and management will continue to address swelling and bruising. Current physical therapy and management strategies seem appropriate, with continued monitoring of any changes in symptoms. 3. Postoperative Pain Continue current pain management strategy and monitor any changes closely. An opioid refill has been requested to manage pain better, and increased hydration is advised to prevent low blood pressure. Patient Instructions - Continue using pain medications as pre scribed, and keep track of the dosing schedule. - Ensure adequate hydration and possibly incorporate a bit more salt into the diet to manage the effects of medication on blood pressure. - Apply ice and elevate the affected leg to reduce swelling and inflammation. - Report any new symptoms or worsening c onditions to the healthcare provider immediately. - Participate in regular physical therap y sessions and avoid overexertion. - Follow up with orthopedic care for dahiana n management and medication refills. Consent The patient provided verbal consent for the pain management and medication plan. We discussed the benefits of effectively controlling pain and possible side effects, including impacts on blood pressure. Alternative management approaches were also reviewed. Further consent will be redirected to the orthopedists regarding the opioid refill. Patient was informed and verbally consented to the use of an ambient scribe for clinic note documentation during this visit. Total time spent caring for the patient today was 40 minutes. This includes time spent before the visit reviewing the chart, time spent during the visit, and time spent after the visit on documentation, reviewing laboratory results, diagnostic imaging, medications, performing a medically necessary evaluation, counseling on diagnoses, care coordination, ordering appropriate tests, ordering appropriate medications, review of tests performed by other providers, reporting test results with the patient, communication with other healthcare providers. [facility] Medical History (Updated 10/31/24 @ 09:38 by LINH HairMANUELA) Arthritis Asthma CAD (coronary atherosclerotic disease) COPD (chronic obstructive pulmonary disease) Cough Degenerative joint disease of low back GERD (gastroesophageal reflux disease) High cholesterol Hypertension Lumbar stenosis Palpitation Sciatica Sinusitis Skin cancer Subclavian artery stenosis, right Thyroid disease Wheezing Surgical History (Updated 10/31/24 @ 09:52 by LINH HairMANUELA) H/O section H/O colonoscopy History of right knee joint replacement Family History Father Substance abuse Hypertension Alcoholism Sister Diabetes Afib Breast cancer Maternal Grandmother Cardiovascular disease Paternal Grandfather Cardiovascular disease Mother Thyroid disorder Social History Household Members: Children Household Members Other:: 3 Both parents involved: No Caregiver staying overnight: No Housing: House Are you a primary child care lead teacher to a significant other at home: No Do you presently have visiting nurse or other home services: No 75 years or older and lives alone: No Alcohol intake: never Patient Tobacco Use Status: Never used Tobacco e-Cigarette/Vaping Use: Never Used service: No Current occupational status: retired Cognitive needs: No Hearing needs: No Vision needs: No Questionnaire PHQ-9 Over the last 2 weeks, how often have you been bothered by any of the following problems? 1. Little interest or pleasure in doing things: not at all 2. Feeling down, depressed, or hopeless: not at all 3. Trouble falling or staying asleep, or sleeping too much: not at all 4. Feeling tired or having little energy: not at all 5. Poor appetite or overeating: not at all 6. Feeling bad about yourself - or that you are a failure or have let yourself or your family down: not at all 7. Trouble concentrating on things, such as reading the newspaper or watching television: not at all 8. Moving or speaking so slowly that other people could have noticed. Or the opposite - being so fidgety or restless that you have been moving around a lot more than usual: not at all 9. Thoughts that you would be better off or of hurting yourself in some way: not at all Total score: 0 Depression Screening Interpretation: Negative Depression Screening Done: Yes 50832 - PHQ-9 Billing: Yes Source: Developed by Drs. Fredi Randall, Joseline Magdaleno, Derek Flores and colleagues, with an educational mercy from [employer]. Thrive Questionnaire Date Thrive assessed: 10/31/24 I am a: Patient What is your living situation today?: I have a steady place to live Within the past 12 months, did the food you bought not last and you didn't have the money to get more?: Never true Within the past 12 months, did you worry whether your food would run out before you got money to buy more?: Never true Do you have trouble paying for medicines?: No Do you have trouble getting transportation to medical appointments?: No Do you have trouble paying your heating and electricity bill?: No Do you have trouble taking care of your child, family member or friend?: No Do you have trouble with day-to-day activities such as bathing, preparing meals, shopping, managing finances, etc.?: No Are you currently unemployed and looking for a job?: No Are you interested in more education?: No Please select the resources that you would like help with: None Currently or been in a relationship where the following occur: No concerns reported THRIVE Score: 0 AUDIT C Alcohol Use Questionnaire (AUDIT-C) 1. How often do you have a drink containing alcohol?: Never 2. How many drinks containing alcohol do you have on a typical day when you are drinking?: 1 or 2 3. How often do you have six or more drinks on one occasion?: Never Total Score: 0 Score Reviewed/Action Taken: Yes MILAGROS-7 AMB Questionnaire MILAGROS-7 Date MILAGROS - 7 assessed: 10/31/24 Feeling nervous, anxious, or on edge: 0 = Not at all Not being able to stop or control worryin = Not at all Worrying too much about different things: 0 = Not at all Trouble relaxin = Not at all Being so restless that it is hard to sit still: 0 = Not at all Becoming easily annoyed or irritable: 0 = Not at all Feeling afraid as if something awful might happen: 0 = Not at all Total MILAGROS-7 score (0-4 normal; 5-9 mild; 10-14 moderate; 15-21 severe): 0 Source: Developed by Drs. Fredi Randall, Joseline Magdaleno, Derek Flores and colleagues, with an educational mercy from [employer]. MILAGROS-7 Assessment Billing MILAGROS-7 Assessment Tool: MILAGROS-7 Assessment 44265 Physical exam (Primary Care) Vital Signs: Last Vital Signs Temp 98.5 F 10/31/24 09:01 Pulse 74 10/31/24 09:01 Resp 12 10/31/24 09:01 BP 98/66 10/31/24 09:01 Pulse Ox 96 10/31/24 09:01 Oxygen Delivery Method Room Air 10/31/24 09:01 Tobacco/Smoking Status: Tobacco use Status Tobacco use date assessed 10/31/24 10/31/24 08:57 Patient Tobacco Use Status Never used Tobacco 10/31/24 08:57 e-Cigarette/Vaping Use Never Used 10/31/24 08:57 PHQ-9: PHQ-9 Score PHQ-9: Total score 0 10/31/24 08:57 Depression Screening Interpretation: Negative Thrive Assessment: Date of Thrive Assessment Date Thrive assessed 10/31/24 10/31/24 08:57 Currently or been in a relationship where the following occur: No concerns reported Office Procedures Advance Care Planning Advance Care Planning discussion: Completed/Scanned Date of discussion: 10/31/24 Who was present: self Forms completed: Health Care Proxy and MOLST Time spent: 1-15 minutes, on File Actual minutes spent: 5 Coding Level of Care Code TCM Mod MDM <= 14 Days Complex EM visit Add On G2211 Diagnoses Hospital discharge follow-up Z09 Low blood pressure, not hypotension R03.1 ACP (advance care planning) Z71.89 Full code status Z78.9 CPT Codes Advance Care Planning - Time spent: 1-15 minutes, on File ([id number]) Additional Codes MILAGROS-7 Assessment Billing - MILAGROS-7 Assessment Tool: MILAGROS-7 Assessment 87237 ([id number]) PHQ-9 - 84150 - PHQ-9 Billing: Yes ([id number]) Assessment & Plan Assessment & Plan (1) Hospital discharge follow-up: Code(s): Z09 - Encounter for follow-up examination after completed treatment for conditions other than malignant neoplasm (2) Low blood pressure, not hypotension: Code(s): R03.1 - Nonspecific low blood-pressure reading (3) ACP (advance care planning): Code(s): Z71.89 - Other specified counseling Category: Medical (4) Full code status: Code(s): Z78.9 - Other specified health status Category: Medical Plan .
[2024-10-31 09:01] VITALS: BP 98/66; PULSE 74; RESP 12; TEMP 36.9; O2SAT 96
--- OUTSIDE RECORDS SUMMARY | 2024-10-31 09:17 | XMS_ITS | Continuity of Care Document ---
Author Organization [facility] Address [address] [address] [place] [address] Phone Care Team Providers Care Billing And Insurance Coordinator Name Role Phone Unavailable Unavailable Unavailable Allergies, [...] Provider Providers Copied on Encounter Eye [facility], [address] [address], [place], [place], [address], tel:[phone] [facility] Patient is here for a 1 week post-op s/p LA BUL (chief complaint) Other specified postprocedural states Z98.890 2 No Information Referring Provider: Saray Torre, [address] [facility], [place], [address]. tel:[phone] [facility], [address] [address], [place], [place], [address], tel:[phone] [place] No Information No Information Referring Provider: Saray Torre, [address] [facility], [place], [address]. 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 tel:[phone] [facility], [address] [address], [place], [place], [address], tel:[phone] [place] Patient is here for decreased and fuzzy vision. 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 [address] [facility], [address], [place], [place], [address], . tel:[phone] Referring Provider: Saray Torre, [address] [place], [address]. tel:[phone] Family History Family Member Type Diagnosis Age At Onset Sister Problem (finding) Cataracts Mother Problem (finding) Cataracts Problem No relevant family history Brother Problem (finding) Cataracts Payers Payer name Insurance type Covered democrat ID Authoriza tion(s) Pres HP Senior Plan CAP CI [id number] Social History Type Description Quantity Date Captured [...] Z98.890; - See plan #1 Related to [place] tochalasis of right upper eyelid H02.831 - [...] H02.831 - See plan #1 Related to [place] tochalasis of left upper eyelid H02.834 - [...]
[2024-10-31 09:46] VITALS: BP 98/42
== END 2024-10-31 11:03 | disposition home or self-care (01) ==
PROVIDERS: PCP Nurse Practitioner Family; Visit Provider Nurse Practitioner Family
DX: R03.1 Nonspecific low blood-pressure reading (principal); Z09 Encounter for follow-up examination after completed treatment for conditions other than malignant neoplasm; Z71.89 Other specified counseling; Z78.9 Other specified health status; Z00.00 Encounter for general adult medical examination without abnormal findings

== ENCOUNTER → 2024-10-31 08:53 | Outpatient (BNVA) | payer MEDICARE, SELFPAY | PROVIDERS: PCP Nurse Practitioner Family; Visit Provider Nurse Practitioner Family | DX: Z09 Encounter for follow-up examination after completed treatment for conditions other than malignant neoplasm (principal); R03.1 Nonspecific low blood-pressure reading; Z78.9 Other specified health status; Z71.89 Other specified counseling | CPT/HCPCS: 96127; 99212 ==

== ENCOUNTER 2024-11-07 10:49 | Outpatient (AMB) | payer MEDICARE, SELFPAY ==
--- NOTE | 2024-11-07 10:53 | A.OFFVIS_ITS ---
Intake Visit Reasons: 2WK PO: R TKA w/NE 10/21/24 Intake Note: Stacie is a 74 year old female who presents today for a post op appointment s/p right TKA 10/21/24 NE. Ming appt. w/ NE 12/01 @ 12:30PM Allergies hyaluronic acid Allergy (Verified 11/07/24 10:53) systemic inflammation HPI HPI 2WK PO: R TKA w/NE 10/21/24: Details: Ms. Huber is a 74-year-old female who presents to the office today for routine follow-up status post right total knee arthroplasty performed on 10/21/[address] Johnson. Overall the patient is doing very well. She denies any complaints. She is walking without the use of any assistive devices. Reports that her pain is minimal. She has been working with [facility] physical therapy at her home and is to transition to outpatient physical therapy on Sunday. [facility] Medical History (Updated 10/31/24 @ 09:38 by LINH Hair-MANUELA) Subclavian artery stenosis, right CAD (coronary atherosclerotic disease) Skin cancer Lumbar stenosis Sciatica GERD (gastroesophageal reflux disease) Cough Wheezing Degenerative joint disease of low back Arthritis Thyroid disease Pal[place]itation High cholesterol Hypertension Sinusitis COPD (chronic obstructive pulmonary disease) Asthma Surgical History (Updated 10/31/24 @ 09:52 by KELTON Hair) History of right knee joint replacement H/O colonoscopy H/O section Family History Father Substance abuse Hypertension Alcoholism Sister Diabetes Afib Breast cancer Maternal Grandmother Cardiovascular disease Paternal Grandfather Cardiovascular disease Mother Thyroid disorder Social History Household Members: Children Household Members Other:: 3 Both parents involved: No Caregiver staying overnight: No Housing: House Are you a primary healthcare recruiter to a significant other at home: No Do you presently have visiting nurse or other home services: No 75 years or older and lives alone: No Alcohol intake: never Patient Tobacco Use Status: Never used Tobacco e-Cigarette/Vaping Use: Never Used service: No Current occupational status: retired Cognitive needs: No Hearing needs: No Vision needs: No Review of Systems Const All systems reviewed & are unremarkable except as noted in HPI and below Physical Exam Const General: cooperative, healthy appearing and no acute distress Resp Effort & Inspection: normal respiratory effort and able to speak in complete sentences Cardio Rate: regular rate Peripheral pulses: Peripheral pulses 2+ throughout Skin Lesions: no lesions Rashes: no rashes Extrem Other: Right knee incision site is clean dry and intact. Luther intact. No surrounding erythema or drainage. No signs of infection. Range of motion 0-110 degrees NVI. Quality Reporting (2019) Adult ([facility] 138/11/08/68) Smoking risk assessment performed?: Yes Patient Tobacco Use Status: Never used Tobacco Assessment & Plan Assessment & Plan (1) S/P total knee arthroplasty: Code(s): Z96.659 - Presence of unspecified artificial knee joint Category: Surgical Plan Ms. Huber is a 74-year-old female who presents to the office today for routine follow-up status post right total knee arthroplasty performed on 10/21/[address] Johnson. Overall the patient is doing very well. She denies any complaints. She is walking without the use of any assistive devices. Reports that her pain is minimal. She has been working with [facility] physical therapy at her home and is to transition to outpatient physical therapy on Sunday. While the office today luther were removed and Steri-Strips were applied. She will continue to work with physical therapy in the outpatient setting. Additionally, she will continue taking the aspirin until 6 weeks postop. She will follow-up in [address] Johnson, sooner if needed. Coding Level of Care Code Global (24637) Diagnoses S/P total knee arthroplasty Z96.659
--- OUTSIDE RECORDS SUMMARY | 2024-11-07 11:54 | XMS_ITS | Continuity of Care Document ---
Author Organization [facility] Address [address] [address] [place] [address] Phone Care Team Providers Care Athlete Manager Name Role Phone Unavailable Unavailable Unavailable Allergies, [...] Date Provider Providers Copied on Encounter Eye [facility], [address] [address], [place], [place], [address], tel:[phone] [facility] Patient is here for a 1 week post-op s/p LA BUL (chief complaint) Other specified postprocedural states Z98.890 2 No Information Referring Provider: Saray Torre, [address] [facility] [place], [address]. tel:[phone] [facility], [address] [address], [place], [place], [address], tel:[phone] [place] No Information No Information Referring Provider: Saray Torre, [address] [facility], [place], [address]. 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 tel:[phone] [facility], [address] [address], [place], [place], [address], tel:[phone] [place] Patient is here for decreased and fuzzy vision. 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 [address] [facility], [address], [place], [place], [address], . tel:[phone] Referring Provider: Saray Torre, [address] [place], [address]. tel:[phone] Family History Family Member Type Diagnosis Age At Onset Sister Problem (finding) Cataracts Mother Problem (finding) Cataracts Problem No relevant family history Brother Problem (finding) Cataracts Payers Payer name Insurance type Covered republican ID Authoriza tion(s) Pres HP Senior Plan CAP CI [id number] Social History Type Description Quantity Date Captured [...] to Other specified postprocedural states Z98.890; - Visual June [employer] today. R elated to Dermatochalasis of right upper eyelid H02.831 - See plan #1 Related to [place] tochalasis of left upper eyelid H02.834 - See plan #1 Related to [place] tochalasis of right upper eyelid H02.831 - [...] myogenic - bilateral upper lids H02.423 - The patient was co unseled on [...] and or symptoms. Related to Pseudophakia Z96.1 Assessments Type Assessment Date assessment Other specified postprocedural s velma Z98.890 Patient Care Teams Name Effective Dates (start - stop) Status Members No Information
== END 2024-11-07 11:47 | disposition home or self-care (01) ==
PROVIDERS: PCP Nurse Practitioner Family; Visit Provider Physician Assistant
DX: Z96.659 Presence of unspecified artificial knee joint (principal)
CPT/HCPCS: 99024

== ENCOUNTER → 2024-11-07 10:49 | Outpatient (BNVA) | payer MEDICARE, SELFPAY | PROVIDERS: PCP Nurse Practitioner Family; Visit Provider Physician Assistant | DX: Z47.1 Aftercare following joint replacement surgery (principal); Z96.651 Presence of right artificial knee joint | CPT/HCPCS: 99212 ==

== ENCOUNTER 2024-12-01 10:01 | Outpatient (REF) | payer MEDICARE, SELFPAY ==
--- NOTE | ~2024-12-01 | XR_ITS ---
CLINICAL HISTORY: Z98.890 - Other specified postprocedural states AP bilateral and two-view right knee Comparison: None Findings: Right knee arthroplasty. No evidence of loosening. No fracture. Generalized soft tissue swelling. No aggressive osseous lesions. The single frontal view of the left knee demonstrates osteophyte formation and near [id number]-ed-nkxa joint space loss. IMPRESSION: 1. Right knee arthroplasty without evidence of acute complication or failure. 2. Advanced degenerative change left knee This document has been electronically signed by: Marlee Bearden MD on 12/03/2024 08:51:41
== END 2024-12-01 10:02 | disposition home or self-care (01) ==
LOC: HO.HOSX 10:01
PROVIDERS: Visit Provider Orthopaedic Surgery
DX: M25.569 Pain in unspecified knee (principal); Z96.651 Presence of right artificial knee joint; M17.12 Unilateral primary osteoarthritis, left knee
CPT/HCPCS: 73562; 99212

== ENCOUNTER 2024-12-01 12:21 | Outpatient (AMB) | payer MEDICARE, SELFPAY ==
--- NOTE | 2024-12-01 12:33 | MHC.OFFVIS ---
Vital Signs 12/01/24 12:33 Height 5 ft 3 in Intake Visit Reasons: 6WK PO: R TKA w/NE 10/21/24 Intake Note: Stacie is a 74 year old female who presents today for a post operative appointment 6 weeks s/p Right TKA 10/21/24. Patient reports that she is doing very well with minimal pain. She continues to work with physical therapy and is increasing ROM. Allergies hyaluronic acid Allergy (Verified 11/07/24 10:53) systemic inflammation HPI HPI 6WK PO: R TKA w/NE 10/21/24: Details: The 6 weeks status post right knee arthroplasty doing well. No complaints. She is walking comfortably and has excellent range of motion according to her physical therapist. [facility] Medical History (Updated 10/31/24 @ 09:38 by KELTON Hair) Subclavian artery stenosis, right CAD (coronary atherosclerotic disease) Skin cancer Lumbar stenosis Sciatica GERD (gastroesophageal reflux disease) Cough Wheezing Degenerative joint disease of low back Arthritis Thyroid disease Palpitation High cholesterol Hypertension Sinusitis COPD (chronic obstructive pulmonary disease) Asthma Surgical History (Updated 10/31/24 @ 09:52 by KELTON Hair) History of right knee joint replacement H/O colonoscopy H/O section Family History Father Substance abuse Hypertension Alcoholism Sister Diabetes Afib Breast cancer Maternal Grandmother Cardiovascular disease Paternal Grandfather Cardiovascular disease Mother Thyroid disorder Social History Household Members: Children Household Members Other:: 3 Both parents involved: No Caregiver staying overnight: No Housing: House Are you a primary neonatal intensive care nurse to a significant other at home: No Do you presently have visiting nurse or other home services: No 75 years or older and lives alone: No Alcohol intake: never Patient Tobacco Use Status: Never used Tobacco e-Cigarette/Vaping Use: Never Used service: No Current occupational status: retired Cognitive needs: No Hearing needs: No Vision needs: No Physical Exam Extrem Other: 3-125 degrees of motion. Well-healed incision. Stable to varus and valgus stress. Normal gait. Quality Reporting (2019) Adult ([facility] 138/11/08/68) Smoking risk assessment performed?: Yes Patient Tobacco Use Status: Never used Tobacco Results Reviewed Results Reviewed: Right total knee arthroplasty in expected post operative position with no hardware complications or evidence of loosening Assessment & Plan Assessment & Plan (1) S/P total knee arthroplasty: Code(s): Z96.659 - Presence of unspecified artificial knee joint Category: Surgical Plan: S/p Right TKA doing well. Continue PT. f/u 6 weeks Orders: Orders XR knee LT 1V Today M25.569 - Pain in unspecified knee Coding Level of Care Code Global (90373) Diagnoses S/P total knee arthroplasty Z96.659
--- OUTSIDE RECORDS SUMMARY | 2024-12-01 14:29 | XMS_ITS | Continuity of Care Document ---
Author Organization [facility] Address [address] [address] [place] [address] Phone Care Team Providers Care Pheresis Nurse Name Role Phone Unavailable Unavailable Unavailable [...] Providers Copied on Encounter [facility], [address] [address], [place], [place], [id number], tel:[phone] [facility] Patient is here for a 1 week post-op s/p LA BUL (chief complaint) Other specified postprocedural states Z98.890 2 No Information Referring Provider: Saray Torre, [address] [facility] [place], [place], [place], [address]. tel:[phone] [facility], [address] [address], [place], [place], [id number], tel:[phone] [facility] No Information No Information Referring Provider: Saray Torre, [address] [facility] [address], [place], [address]. 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 tel:[phone] [facility], [address] [address], [place], [place], [id number], tel:[phone] [facility] Patient is here for decreased and fuzzy vision. 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 [address] [facility], [address], [place], [place], [id number], . tel:[phone] Referring Provider: Saray Torre, [address] [place], [address]. tel:[phone] Family History Family Member Type Diagnosis Age At Onset Sister Problem (finding) Cataracts Mother Problem (finding) Cataracts Brother Problem (finding) Cataracts Problem No relevant family history Payers Payer name Insurance type Covered republican ID Authoriza tion(s) Pres HP Senior Plan CAP CI [id number] Social History Type Description Quantity Date Captured [...] Z98.890; - See plan #1 Related to Perkins tochalasis of right upper eyelid H02.831 - [...] H02.831 - See plan #1 Related to Perkins tochalasis of left upper eyelid H02.834 - [...]
== END 2024-12-01 13:05 | disposition home or self-care (01) ==
LOC: HO.HOS 12:22
PROVIDERS: PCP Nurse Practitioner Family; Visit Provider Orthopaedic Surgery
DX: Z96.659 Presence of unspecified artificial knee joint (principal)
CPT/HCPCS: 99024

== ENCOUNTER → 2024-12-01 12:27 | Outpatient (BNV) | payer MEDICARE, SELFPAY | PROVIDERS: Visit Provider Radiology Diagnostic Radiology | DX: Z96.651 Presence of right artificial knee joint (principal) | CPT/HCPCS: 73562 ==

== ENCOUNTER 2025-01-02 13:03 | Outpatient (RCR) | payer MEDICARE, SELFPAY ==
[2024-11-10 08:31] VITALS: BP 120/64; PULSE 77; O2SAT 98
--- NOTE | 2024-11-10 15:03 | MHC.PT.EP ---
[facility] [place] Office [place] Office [place] Office [address] Omer Keller [address] [phone] F: [phone] F: [phone] F: [phone] F: [phone] Physical Therapy Plan of Care Date of Evaluation: 11/10/24 Date of Surgery: Diagnosis: PT eval and treat, Z96.651 Presence of right artificial knee joint, status post total right knee replacement, R TKA 10/21/24 book after 11/07/24- [place] signed by Marj Tam PA-C 10/16/24 Assessment: Pt is a RHD 74 y/o female, s/p R TKA 10/21/[address] Johnson. Pt had post op on 11/07/24 and drew/dressing removed present with steri-strips over incision, dryness of R LE with mild edema noted through whole leg. Pt has been receiving [facility] services 3x/weel which finished last week. Pt AROM 0 to 100 degrees, AAROM to 110 this date. Pt presents to PT with use of std cane. Pt has been advised to refrain from walking in backyard to fill bird feeder due to risk of fall with ice. Pt encouraged/educated HEP at length with program. Pt educated re: goals of PT at this time. Pt currently not driving *son Jian providing transportation for her. Pt has been using her floor pedal bike at home for five minutes per day but has been educated in goals/plans. Pt encouraged to attend 3x/week x first few weeks then likely downgrade to 2x/week x 4 weeks. Pt exhibits excellent rehab potential and has good motivation for recovery. Frequency and Duration: The patient will be seen 2x/xweek x 6 weeks Short Term Goals: 1. R knee AAROM ext to -5. 2. R knee AAROM flexion to 110. 3. Demonstrate good strength with SLR. 4. Pt will negotiate community distances with least restrictive AD. 5. Pt will demonstrate start of self care/ HEP. Shelter Goals: 1. R knee AROM 0 to 120 degrees. 2. Strength R knee globally 5/5 all planes. 3. Negotiate stairs with good dynamic balance with least restrictive AD. 4. Pt will demonstrate I HEP. 5. Resume community ambulation MOD I. Treatment Plan: Modalities to reduce pain, spasms and effusion. Manual therapy to restore motion and function. Therapeutic exercise to improve strength and flexibility. Neuromuscular re-education for posture and balance. Therapeutic activities to return to functional activities of daily living. Electronically signed by: Ania Zheng, PT, DPT Please sign and return to therapist. Thank you for your referral.
--- NOTE | 2024-11-26 14:25 | MHC.PT.OD ---
[facility] [place] Office [place] Office [place] Office [address] Omer Keller [address] [phone] F: [phone] F: [phone] F: [phone] F: [phone] Physical Therapy Daily Note Diagnosis: PT eval and treat, Z96.651 Presence of right artificial knee joint, status post total right knee replacement, R TKA 10/21/24 book after 11/07/24- [place] signed by Marj Tam PA-C 10/16/24 Date of Surgery: Date of Evaluation: 11/10/24 Date of Treatment: 11/26/24 Treatments to Date: Cancellations to Date: No Shows to Date: Authorized Visits: 6 Insurance End Date: Precautions/ Contraindications:R TKA 10/21/24 Dr. Johnson HTN Subjective: I'm feeling a little stiff this morning. Pain Score and Location: 4-5/10 Objective Flowsheet: Tests & Measures AROM 0-115 degrees, AAROM flexion 120 degrees. Exercises Seat #5 able to make full twin peak program level 3.5 x 10 minutes for warm-up Standing hip hinge functional squat with GTB x 2 sets 10R with YTB then trialed with RTB for UE, ROWS/ext x 2 sets 10R tandem stance split step x 2 set 10R; hook-lying physio-ball bridge x 2 set 10R with LBTR with combo of cervical rotation and pec stretch, bridge over physio-ball x 2 sets 10R; AAROM flexion with heel slide x 2 sets 5R to 120 degrees. HEP handouts issued for self-care (rows/ext/squat with combo). Review of prone lying over pillow with press up onto elbow to reduce/centralize sciatica sx. Education for patellar mobs/self care of incision/safety with avoidance of cream/lotion over incision. Encouragement to use cane for longer community distances at this time, present without today. Cues for heel strike> increased step length/support with ambulation x 300ft in long hallway on exit from PT office. Discussed pre-gait activities Modalities Assessment: 11/27/23: Pt demonstrating improving strength, present to office without std cane. AAROM flexion to 120 degrees, ext full. Pt is advancing in her level of mobility/endurance. Pt is scheduled with [facility] next week for a follow up. She has DC use of opioids and has been using tylenol twice daily for relief of pain in addition to icing. 11/24/24; Pt present without AD this date, mildly antalgic gait. Reports starting to catch herself wanting to ascend/descend stairs reciprocally but not consistently at this time. Mild weakness in hip abductors with report intermittent sciatica L>R LE has been doing prone ex with some centralization. Pt doing well overall reports increase in community ambulation and walking outside with std cane/cell phone for safety. Pt reports working on 4 way resisted hip exercises at home over the weekend. 11/18/24: AAROM flexion to 120 degrees. [facility] resisted hip this date and TKE with good ability. Pt has lost all steri-strips on her post operative R knee. Has positive response to ROCKTAPE for tibiofemoral support/reduce pain on L knee (severe medial compartment OA). Pt positive carryover for removal of tape post instruction. 11/14/24: AAROM flexion to 115 degrees. Pt has six steri-strips remaining over incision. Small superior aspect of incision has a small reddened area with potential internal stitch irritation? Pt advised to monitor. Pt encouraged to use ice prn for edema/post exercise. 11/12/24: AAROM knee flexion to 110. Pt has seven steri-strips remaining over knee incision. Pt is a RHD 74 y/o female, s/p R TKA 10/21/[address] Johnson. Pt had post op on 11/07/24 and drew/dressing removed present with steri-strips over incision, dryness of R LE with mild edema noted through whole leg. Pt has been receiving [facility] services 3x/week which finished last week. Pt AROM 0 to 100 degrees, AAROM to 110 this date. Pt presents to PT with use of std cane. Pt has been advised to refrain from walking in backyard to fill bird feeder due to risk of fall with ice. Pt encouraged/educated HEP at length with program. Pt educated re: goals of PT at this time. Pt currently not driving *son Jian providing transportation for her. Pt has been using her floor pedal bike at home for five minutes per day but has been educated in goals/plans. Pt encouraged to attend 3x/week x first few weeks then likely downgrade to 2x/week x 4 weeks. Pt exhibits excellent rehab potential and has good motivation for recovery. PT Plan: Progression of CKC strengthening>balance>endurance activities. Short Term Goals: 1. R knee AAROM ext to -5. 2. R knee AAROM flexion to 110. 3. Demonstrate good strength with SLR. 4. Pt will negotiate community distances with least restrictive AD. 5. Pt will demonstrate start of self care/ HEP. Senior Care Goals: 1. R knee AROM 0 to 120 degrees. 2. Strength R knee globally 5/5 all planes. 3. Negotiate stairs with good dynamic balance with least restrictive AD. 4. Pt will demonstrate I HEP. 5. Resume community ambulation MOD I. Electronically signed by: Ania Zheng, PT, DPT
--- NOTE | 2024-11-28 14:43 | MHC.PT.OD ---
[facility] [place] Office [place] Office [place] Office [address] Omer Keller [address] [phone] F: [phone] F: [phone] F: [phone] F: [phone] Physical Therapy Daily Note Diagnosis: PT eval and treat, Z96.651 Presence of right artificial knee joint, status post total right knee replacement, R TKA 10/21/24 book after 11/07/24- [place] signed by Marj Tam PA-C 10/16/24 Date of Surgery: Date of Evaluation: 11/10/24 Date of Treatment: 11/28/24 Treatments to Date: Cancellations to Date: No Shows to Date: Authorized Visits: 7 Insurance End Date: Precautions/ Contraindications:R TKA 10/21/24 Dr. Johnson HTN Subjective: My sciatica is talking to me at night. Pain Score and Location: 4-5/10 Objective Flowsheet: Tests & Measures AROM 0-115 degrees, AAROM flexion 120 degrees. Exercises Seat #5 able to make full twin peak program level 3.5 x 5 minutes for warm-up, seat #13 level 2.0 x five minutes arm closed all the way in, Step-up and over onto airex x 2 set 10R, lateral step-up and over airex pad x 2 sets 10R, lateral heel touch from 6 inch step x 2 sets 10R, standing airex on toe taps lateral corner on L and R x 10R each LE, bridge over pball x 2 sets 10R, posterior pelvic tilt x 2 sets 10R with feet on pball x 2 sets 10R, discussion of benefit in hip stretching ER/LBTR to ease posterior hip tightness x 4R x 20 sec hold each side, AAROM flexion to knee x 10R to 125 degrees with strap. Review of prone lying over pillow with press up onto elbow to reduce/centralize sciatica sx. Education for patellar mobs/self care of incision/safety with avoidance of cream/lotion over incision. Positioned in SL for flexbar STM to posterior/lateral hip in effort to increase tissue extensibility and reduce mm tension. Encouragement to use cane for longer community distances at this time (present with in office today) , present without today. Cues for heel strike> increased step length/support with ambulation x 300ft in long hallway on exit from PT office. Discussed pre-gait activities toe taps in standing with UE support to progress/work lateral hips. Modalities Assessment: 11/29/23: Stacie is doing well in regard to her progression TKA recovery. Today AAROM 0 to 125 degrees. Improving strengh and endurance week to week. She has D/C use of narcotics and has been doing tylenol twice daily. She continues to require support of std cane for longer community distances (was encouraged due to antalgic gait), reports some intermittent sciatica sx which have also been addressed during her PT sessions. She verbalizes carryover of HEP and self care. She is scheduled to see Dr. Johnson next week for a follow-up. 11/27/23: Pt demonstrating improving strength, present to office without std cane. AAROM flexion to 120 degrees, ext full. Pt is advancing in her level of mobility/endurance. Pt is scheduled with [facility] orthopedics next week for a follow up. She has DC use of opioids and has been using tylenol twice daily for relief of pain in addition to icing. 11/24/24; Pt present without AD this date, mildly antalgic gait. Reports starting to catch herself wanting to ascend/descend stairs reciprocally but not consistently at this time. Mild weakness in hip abductors with report intermittent sciatica L>R LE has been doing prone ex with some centralization. Pt doing well overall reports increase in community ambulation and walking outside with std cane/cell phone for safety. Pt reports working on 4 way resisted hip exercises at home over the weekend. 11/18/24: AAROM flexion to 120 degrees. [facility] this date and TKE with good ability. Pt has lost all steri-strips on her post operative R knee. Has positive response to ROCKTAPE for tibiofemoral support/reduce pain on L knee (severe medial compartment OA). Pt positive carryover for removal of tape post instruction. 11/14/24: AAROM flexion to 115 degrees. Pt has six steri-strips remaining over incision. Small superior aspect of incision has a small reddened area with potential internal stitch irritation? Pt advised to monitor. Pt encouraged to use ice prn for edema/post exercise. 11/12/24: AAROM knee flexion to 110. Pt has seven steri-strips remaining over knee incision. Pt is a RHD 74 y/o female, s/p R TKA 10/21/[address] Johnson. Pt had post op on 11/07/24 and drew/dressing removed present with steri-strips over incision, dryness of R LE with mild edema noted through whole leg. Pt has been receiving [facility] services 3x/week which finished last week. Pt AROM 0 to 100 degrees, AAROM to 110 this date. Pt presents to PT with use of std cane. Pt has been advised to refrain from walking in backyard to fill bird feeder due to risk of fall with ice. Pt encouraged/educated HEP at length with program. Pt educated re: goals of PT at this time. Pt currently not driving *son Jian providing transportation for her. Pt has been using her floor pedal bike at home for five minutes per day but has been educated in goals/plans. Pt encouraged to attend 3x/week x first few weeks then likely downgrade to 2x/week x 4 weeks. Pt exhibits excellent rehab potential and has good motivation for recovery. PT Plan: Await follow up with Dr. Johnson next week. Continue core/hip/glute/ knee strengthening, CKC progression. Short Term Goals: 1. R knee AAROM ext to -5. 2. R knee AAROM flexion to 110. 3. Demonstrate good strength with SLR. 4. Pt will negotiate community distances with least restrictive AD. 5. Pt will demonstrate start of self care/ HEP. Half-Way Goals: 1. R knee AROM 0 to 120 degrees. 2. Strength R knee globally 5/5 all planes. 3. Negotiate stairs with good dynamic balance with least restrictive AD. 4. Pt will demonstrate I HEP. 5. Resume community ambulation MOD I. Electronically signed by: Ania Zheng, PT, DPT
== END 2025-03-10 07:19 | disposition home or self-care (01) ==
LOC: HO.PTS 13:03
PROVIDERS: PCP Nurse Practitioner Family; Visit Provider Physician Assistant
DX: Z96.651 Presence of right artificial knee joint (principal)
CPT/HCPCS: 97110; 97116; 97140; 97161; 97530; 97535

== ENCOUNTER 2025-01-22 14:11 | Outpatient (AMB) | payer MEDICARE, SELFPAY ==
--- NOTE | 2025-01-22 14:16 | MHC.OFFVIS ---
Intake Visit Reasons: PO: R TKA w/NE 10/21/24-6 week follow up Intake Note: Stacie is a 74 year old female who presents today for a post operative appointment about 3 months s/p Right TKA 10/21/24. She reports that she is doing well with intermittant pain in the lateral aspect of the right knee Allergies hyaluronic acid Allergy (Verified 11/07/24 10:53) systemic inflammation HPI HPI PO: R TKA w/NE 10/21/24-6 week follow up: Details: Stacie is now 3 months status post right knee replacement. She is doing well. She has no concerns. She states she is walking comfortably. Her knee is not giving way. She has no pain. She is not using an assistive device. [facility] Medical History (Updated 10/31/24 @ 09:38 by LINH Hair-MANUELA) Subclavian artery stenosis, right CAD (coronary atherosclerotic disease) Skin cancer Lumbar stenosis Sciatica GERD (gastroesophageal reflux disease) Cough Wheezing Degenerative joint disease of low back Arthritis Thyroid disease Palpitation High cholesterol Hypertension Sinusitis COPD (chronic obstructive pulmonary disease) Asthma Surgical History (Updated 10/31/24 @ 09:52 by KELTNO Hair) History of right knee joint replacement H/O colonoscopy H/O section Family History Father Substance abuse Hypertension Alcoholism Sister Diabetes Afib Breast cancer Maternal Grandmother Cardiovascular disease Paternal Grandfather Cardiovascular disease Mother Thyroid disorder Social History Household Members: Children Household Members Other:: 3 Both parents involved: No Caregiver staying overnight: No Housing: House Are you a primary care management specialist to a significant other at home: No Do you presently have visiting nurse or other home services: No 75 years or older and lives alone: No Alcohol intake: never Patient Tobacco Use Status: Never used Tobacco e-Cigarette/Vaping Use: Never Used service: No Current occupational status: retired Cognitive needs: No Hearing needs: No Vision needs: No Physical Exam Extrem Other: Incision clean dry and intact. 0-125 degrees motion. Stable to varus and valgus stress. Walking comfortably. Assessment & Plan Assessment & Plan (1) History of right knee joint replacement: Code(s): Z96.651 - Presence of right artificial knee joint Category: Surgical Plan: Status post right knee replacement doing well. Continue activity as tolerated. Dental prophylaxis discussed. May follow up for her consideration of left knee arthroplasty in 6-12 months. Coding Level of Care Code Global (29769) Diagnoses History of right knee joint replacement Z96.651
== END 2025-01-22 15:14 | disposition home or self-care (01) ==
LOC: HO.HOS 14:12
PROVIDERS: PCP Nurse Practitioner Family; Visit Provider Orthopaedic Surgery
DX: Z47.1 Aftercare following joint replacement surgery (principal); Z96.651 Presence of right artificial knee joint
CPT/HCPCS: 99213

== ENCOUNTER → 2025-01-22 14:11 | Outpatient (BNVA) | payer MEDICARE, SELFPAY | PROVIDERS: PCP Nurse Practitioner Family; Visit Provider Orthopaedic Surgery | DX: Z47.1 Aftercare following joint replacement surgery (principal); Z96.651 Presence of right artificial knee joint | CPT/HCPCS: 99212 ==

== ENCOUNTER 2025-04-08 13:41 | Outpatient (AMB) | payer MEDICARE, SELFPAY ==
--- NOTE | 2025-04-08 13:43 | A.OFFPC_ITS ---
Vital Signs 04/08/25 13:49 Height 5 ft 3 in Weight 170 lb 2 oz BMI 30.1 BP 132/72 Blood Pressure Location Lt brachial Position Sitting Respiration 12 Pulse 68 Pulse Source Pulse Oximeter Temp 97.2 F Temp Source Oral Pulse Oximetry (%) 99 Oxygen Delivery Method Room Air Intake Visit Reasons: ROUTINE 6 MONTH FU VISIT Intake Note: Routine follow up Dry Cleaner Presser Required: No Allergies hyaluronic acid Allergy (Verified 04/08/25 13:58) systemic inflammation Medication List - Last Reconciled 04/08/25 by Analia Hamlin, [employer]- acetaminophen 650 mg (2 x 325 mg) PO Q6H PRN 30 days albuterol sulfate 90 mcg/actuation 2 puffs inhalation Q4H PRN aspirin 325 mg PO BID 42 days baclofen 10 mg PO BEDTIME PRN celecoxib 200 mg PO BID duloxetine 30 mg PO BEDTIME ezetimibe (Zetia) 10 mg PO DAILY fluticasone furoate 200 mcg/actuation (Arnuity Ellipta) 1 inh inhalation DAILY 90 days fluticasone propionate 50 mcg/actuation 1 spray intranasal BEDTIME levothyroxine 88 mcg PO DAILY 90 days loratadine 10 mg PO DAILY losartan-hydrochlorothiazide 50-12.5 mg 1 tab PO DAILY montelukast 10 mg PO BEDTIME walker Folding Front wheeled walker duration 99 days Tobacco use date assessed: 04/08/25 Fall risk assessment: No Falls in past year Last assessed Fall Risk: 04/08/25 Dental Screening Dental Screen Date: 04/08/25 Did you have a dental visit in the last 12 months?: Yes Did you have a dental problem in the last 6 months where you did not have access to dental care?: No Was dental information given to patient?: Patient has dentist HPI HPI Comments History of Present Illness Details 74 y/o F with asthma/COPD overlap, 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, hypothyroid, HTN, HLD, carotid bruit bilat , spinal stenosis with left for extremity radiculopathy (mri lumbar spine wo contrast 05/05/23 ), osteopenia, CAD (noted on ct abd/pelvis 04/26/22 calcifications of the abd aorta c/w atherosclerosis), PACs, vit d def, hiatal hernia, fatty liver, uterine fibroids, right proximal subclavian artery stenosis US done 04/15/19 and 12/15/20 w/o change, osteoarthritis bilat knees, Castañeda cyst on the rights/p bilat lense replacements s/p c sections & right total knee arthroscopy History of Present Illness - The patient is a 74-year-old female pr esenting for a routine complex disease management visit. - COPD relates to fluctuating breathing issues with consistent inhaler and Flonase use. - Post-R knee surgery status: Patient wa lks and bikes, with occasional leg numbness remedied by resting. completed PT. Taking diclofenac 75 BID - Adjustment Disorder reflects improved mood; legal matters are unresolved but less stressful. Cont on duloxetine. Had expressed interest in stopping previously; ok to cont @ this time. - Controlled thyroid, hypertensive, and lipids with medication adherence. - Spinal stenosis causes positional scia zackery affecting LLE; no severe exacerbation. - Got Shingles shot 12/2024, will get 2nd dose along w/ flu and covid Review of Systems - Respiratory: Reports a productive coug h with nasal drainage, denies any exacerbations. - Musculoskeletal: Reports improved knee status post-surgery, occasional leg numbness when walking distances, improves with rest. - Psychological: Reports good mood, impr genesis adjustment disorder with stressors reduced. - Gastrointestinal: Denies current signi ficant indigestion, only episodic symptoms with specific foods. - Dermatologic: No mentions of issues. - Cardiovascular: Denies chest pain, con trolled blood pressure. - General: Reported improvement, no sign ificant negative symptoms impacting daily life. Physical Exam General: Well developed, well nourished, in no acute distress. Appears stated age. Head: Normocephalic, atraumatic. Eyes: Pupils are equal, round and reactive to light and accommodation. Conjunctivae are clear. Vision grossly normal. Lungs: Clear to auscultation bilaterally, dim throughout, No rales, rhonchi or wheeze noted. Heart: Regular rate and rhythm. No murmurs, click, rubs or gallops are noted. Musculoskeletal: Joints are nontender, without swelling, redness, or effusions. Pulses: Peripheral pulses are equal and palpable bilaterally, positive varicosities. Extremities: No clubbing, cyanosis nor edema is noted. Psych: Mood and affect appropriate. Discussion Notes During the visit, I discussed the management of COPD, which remained stable with current inhalers and nasal spray, and recommended monitoring for any exacerbations. The patient's adjustment disorder with anxiety and depression was reviewed, emphasizing medication adherence and continual monitoring. A plan to taper duloxetine when the legal matters are fully resolved was discussed but deferred due to the current situation. The patient expressed understanding and agreement with the current management plan overall and expressed no concerns regarding the control of hypertension and hyperlipidemia. I addressed the plan to extend baclofen prescription to 90-day supply for convenience and reviewed the pharmacy's role in ensuring prescriptions are sent correctly. Arrangements were made to submit refills as appropriate, noting the shift back to [facility] as the patient's preferred pharmacy. The importance of keeping physical activity within limits that aggravate spinal stenosis was discussed, as well as the i ntention to maintain regular activity to address the nonalcoholic fatty liver disease. The next annual wellness visit was planned for September with required lab work beforehand. The patient was advised to forward the colonoscopy report once accessible for her records. Assessment and Plan 1. Chronic Obstructive Pulmonary Disease (COPD) - Maintain inhaler regimen, monitor symp toms. 2. Adjustment Disorder - Continue duloxetine, consider tapering after stressors resolved. 3. Essential Hypertension - Continue meds for BP control. 4. Hyperlipidemia - Continue Zetia, follow-up on lipid lev els. 5. Post-surgical Status (Knee), R - Encourage regular physical activity. 6. Spinal Stenosis - Monitor radiculopathy, adjust activiti es accordingly. RTO GERRI FOR AWV LABS 1 WEEK BEFORE SOONER PRN Patient Instructions - Continue using inhalers and Flonase as prescribed. - Remember to stay active?exercise regul jennifer, but take breaks if you feel leg numbness. - Keep taking duloxetine; plans to taper can be considered later. - Follow your medication schedule and [facility] for refills. - Please let me know if you access your colonoscopy report. - Return for labs before your September we llness visit. - Monitor any symptoms, especially durin g pollen season, and inform me of any changes. Consent Patient was informed and verbally consented to the use of an ambient scribe for clinic note documentation during this visit. Total time spent caring for the patient today was 30 minutes. This includes time spent before the visit reviewing the chart, time spent during the visit, and time spent after the visit on documentation, reviewing laboratory results, diagnostic imaging, medications, performing a medically necessary evaluation, counseling on diagnoses, care coordination, ordering appropriate tests, ordering appropriate medications, review of tests performed by other providers, reporting test results with the patient, communication with other healthcare providers. [facility] Medical History (Updated 04/08/25 @ 14:27 by Analia Hamlin [facility]) Arthritis Asthma CAD (coronary atherosclerotic disease) COPD (chronic obstructive pulmonary disease) Cough Degenerative joint disease of low back GERD (gastroesophageal reflux disease) High cholesterol Hypertension Lumbar stenosis Palpitation Sciatica Sinusitis Skin cancer Subclavian artery stenosis, right Thyroid disease Wheezing Surgical History (Updated 04/08/25 @ 14:27 by Analia Hamlin [facility]) H/O section H/O colonoscopy History of right knee joint replacement Family History Father Substance abuse Hypertension Alcoholism Sister Diabetes Afib Breast cancer Maternal Grandmother Cardiovascular disease Paternal Grandfather Cardiovascular disease Mother Thyroid disorder Social History Household Members: Children Household Members Other:: 3 Both parents involved: No Caregiver staying overnight: No Housing: House Are you a primary healthcare manager to a significant other at home: No Do you presently have visiting nurse or other home services: No 75 years or older and lives alone: No Alcohol intake: never Patient Tobacco Use Status: Never used Tobacco e-Cigarette/Vaping Use: Never Used service: No Current occupational status: retired Cognitive needs: No Hearing needs: No Vision needs: No Questionnaire Thrive Questionnaire Date Thrive assessed: 10/30/24 I am a: Patient What is your living situation today?: I have a steady place to live Within the past 12 months, did the food you bought not last and you didn't have the money to get more?: Never true Within the past 12 months, did you worry whether your food would run out before you got money to buy more?: Never true Do you have trouble paying for medicines?: No Do you have trouble getting transportation to medical appointments?: No Do you have trouble paying your heating and electricity bill?: No Do you have trouble taking care of your child, family member or friend?: No Do you have trouble with day-to-day activities such as bathing, preparing meals, shopping, managing finances, etc.?: No Are you currently unemployed and looking for a job?: No Are you interested in more education?: No Please select the resources that you would like help with: None Currently or been in a relationship where the following occur: No concerns reported THRIVE Score: 0 MILAGROS-7 AMB Questionnaire MILAGROS-7 Date MILAGROS - 7 assessed: 10/31/24 Source: Developed by Drs. Fredi Randall, Joseline Magdaleno, Derek Flores and colleagues, with an educational mercy from [employer]. ACT Questionnaire In the past 4 weeks, how much of the time did your asthma keep you from getting as much done at work, school or at home?: None of the time During the past 4 weeks, how often have you had shortness of breath?: Not at all During the past 4 weeks, how often did your asthma symptoms wake you up at night or earlier than usual in the morning?: Not at all During the past 4 weeks, how often have you had to use your rescue inhaler or nebulizer medication?: Not at all How would you rate your asthma control during the past 4 weeks?: Completely controlled ACT Interpretation: Negative Score: 25 Physical exam (Primary Care) Vital Signs: Last Vital Signs Temp 97.2 F 04/08/25 13:49 Pulse 68 04/08/25 13:49 Resp 12 04/08/25 13:49 BP 132/72 04/08/25 13:49 Pulse Ox 99 04/08/25 13:49 Oxygen Delivery Method Room Air 04/08/25 13:49 BMI result Body Mass Index 30.1 BMI Assessment/Plan discussion: High BMI High, discussed plan: lifestyle Tobacco/Smoking Status: Tobacco use Status Tobacco use date assessed 04/08/25 04/08/25 13:50 Patient Tobacco Use Status Never used Tobacco 04/08/25 13:44 e-Cigarette/Vaping Use Never Used 04/08/25 13:44 Thrive Assessment: Date of Thrive Assessment Date Thrive assessed 10/30/24 04/08/25 13:44 Currently or been in a relationship where the following occur: No concerns reported Coding Level of Care Code Est Pt Level 4 (04868) Complex EM visit Add On G2211 Diagnoses Mixed hyperlipidemia E78.2 Hyperlipidemia type: mixed hyperlipidemia 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 E06.3 Adjustment disorder with mixed anxiety and depressed mood F43.23 Fatty liver K76.0 Status post total right knee replacement Z96.651 Laterality: right Spinal stenosis of lumbar region with radiculopathy M48.061; M54.16 Asthma-chronic obstructive pulmonary disease overlap syndrome J44.89 Obesity (BMI 30-39.9) E66.9 Additional Codes Asthma Control Questionnaire - ACT Interpretation: Negative ([id number]) Assessment & Plan Assessment & Plan (1) Hyperlipidemia: Code(s): E78.5 - Hyperlipidemia, unspecified Category: Medical Qualifiers: Hyperlipidemia type: mixed hyperlipidemia Qualified Code(s): E78.2 - Mixed hyperlipidemia (2) 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: Code(s): E06.3 - Autoimmune thyroiditis Category: Medical (3) Adjustment disorder with mixed anxiety and depressed mood: Code(s): F43.23 - Adjustment disorder with mixed anxiety and depressed mood Category: Medical (4) Fatty liver: Code(s): K76.0 - Fatty (change of) liver, not elsewhere classified Category: Medical (5) S/P total knee arthroplasty: [place]set Date: 2024 [place] [facility] [place]s): Z96.659 - Presence of unspecified artificial knee joint Category: Surgical Qualifiers: Laterality: right Qualified Code(s): Z96.651 - Presence of right artificial knee joint (6) Spinal stenosis of lumbar region with radiculopathy: Comment: mri lumbar spine wo contrast 05/05/23 Code(s): M48.061 - Spinal stenosis, lumbar region without neurogenic claudication; M54.16 - Radiculopathy, lumbar region Category: Medical (7) Asthma-chronic obstructive pulmonary disease overlap syndrome: Code(s): J44.89 - Other specified chronic obstructive pulmonary disease Category: Medical (8) Obesity (BMI 30-39.9): Code(s): E66.9 - Obesity, unspecified Category: Medical Plan . Orders: Orders Comprehensive Met. Panel 6 Months E06.3 - Autoimmune thyroiditis, E78.2 - Mixed hyperlipidemia, M85.80 - Other specified disorders of bone density and structure, unspecified site, Z00.00 - Encounter for general adult medical examination without abnormal findings Vitamin B12 and Folate 6 Months E06.3 - Autoimmune thyroiditis, E78.2 - Mixed hyperlipidemia, M85.80 - Other specified disorders of bone density and structure, unspecified site, Z00.00 - Encounter for general adult medical examination without abnormal findings Complete Blood Count no Diff 6 Months E06.3 - Autoimmune thyroiditis, E78.2 - Mixed hyperlipidemia, M85.80 - Other specified disorders of bone density and structure, unspecified site, Z00.00 - Encounter for general adult medical examination without abnormal findings Lipid Panel 6 Months E06.3 - Autoimmune thyroiditis, E78.2 - Mixed hyperlipidemia, M85.80 - Other specified disorders of bone density and structure, unspecified site, Z00.00 - Encounter for general adult medical examination without abnormal findings Microalbumin, Random (w Creat) 6 Months E06.3 - Autoimmune thyroiditis, E78.2 - Mixed hyperlipidemia, M85.80 - Other specified disorders of bone density and structure, unspecified site, Z00.00 - Encounter for general adult medical examination without abnormal findings TSH reflex Free T4 6 Months E06.3 - Autoimmune thyroiditis, E78.2 - Mixed hyperlipidemia, M85.80 - Other specified disorders of bone density and structure, unspecified site, Z00.00 - Encounter for general adult medical examination without abnormal findings Vitamin D 25-OH Total 6 Months E06.3 - Autoimmune thyroiditis, E78.2 - Mixed hyperlipidemia, M85.80 - Other specified disorders of bone density and structure, unspecified site, Z00.00 - Encounter for general adult medical examination without abnormal findings Medications: New diclofenac sodium 75 mg PO BID 180 tabs 2RF Refilled losartan-hydrochlorothiazide 50-12.5 mg 1 tab PO DAILY 90 tabs 0RF baclofen 10 mg PO BEDTIME PRN 90 tabs 2RF muscle spasm albuterol sulfate 90 mcg/actuation 2 puffs inhalation Q4H PRN 8.5 grams 2RF shortness of breath or wheezing Discontinued celecoxib Discontinued Reason: Patient Completed Course 200 mg PO BID 60 caps 0RF
[2025-04-08 13:49] VITALS: BP 132/72; PULSE 68; RESP 12; TEMP 36.2; O2SAT 99; BMI 30.1
== END 2025-04-08 14:20 | disposition home or self-care (01) ==
LOC: HO.HMCFM 13:42
PROVIDERS: PCP Nurse Practitioner Family; Visit Provider Nurse Practitioner Family
DX: E78.2 Mixed hyperlipidemia (principal); J44.89 Other specified chronic obstructive pulmonary disease; E66.9 Obesity, unspecified; Z68.30 Body mass index [BMI] 30.0-30.9, adult; E06.3 Autoimmune thyroiditis; F43.23 Adjustment disorder with mixed anxiety and depressed mood; K76.0 Fatty (change of) liver, not elsewhere classified; Z96.651 Presence of right artificial knee joint; M48.061 Spinal stenosis, lumbar region without neurogenic claudication; M54.16 Radiculopathy, lumbar region

== ENCOUNTER → 2025-04-08 13:41 | Outpatient (BNVA) | payer MEDICARE, SELFPAY | PROVIDERS: PCP Nurse Practitioner Family; Visit Provider Nurse Practitioner Family | DX: J44.89 Other specified chronic obstructive pulmonary disease (principal); F41.8 Other specified anxiety disorders; E03.9 Hypothyroidism, unspecified; I10 Essential (primary) hypertension; I25.10 Atherosclerotic heart disease of native coronary artery without angina pectoris; M48.00 Spinal stenosis, site unspecified; E78.2 Mixed hyperlipidemia; E06.3 Autoimmune thyroiditis; F43.23 Adjustment disorder with mixed anxiety and depressed mood; K76.0 Fatty (change of) liver, not elsewhere classified; M48.061 Spinal stenosis, lumbar region without neurogenic claudication; M54.16 Radiculopathy, lumbar region; E66.9 Obesity, unspecified; Z96.651 Presence of right artificial knee joint; Z68.30 Body mass index [BMI] 30.0-30.9, adult | CPT/HCPCS: 96160; 99212 ==

== ENCOUNTER 2025-07-23 12:34 | Outpatient (REF) | payer MEDICARE, SELFPAY ==
--- OUTSIDE RECORDS SUMMARY | 2021-10-14 05:30 | XMS_ITS | Continuity of Care Document ---
Author Organization [facility] Address [address] [address] [place] [address] Phone Care Team Providers Care Author'S Agent Name Role Phone Unavailable Unavailable Unavailable Allergies, [...] Date Provider Providers Copied on Encounter Eye [facility], [address] [address], [place], [place], [address], tel:[phone] [facility] Patient is here for a 1 week post-op s/p LA BUL (chief complaint) Other specified postprocedural states Z98.890 2 No Information Referring Provider: Saray Torre, [address] [facility] [place], [id number]. tel:[phone] [facility], [address] [address], [place], [place], [address], tel:[phone] [place] No Information No Information Referring Provider: Saray Torre, [address] [facility], [place], [id number]. tel:[phone] [facility], [address] [address], [place], [place], [address], [place] tel:[phone] [facility] No Information 2 No Information Office/outpa tient visit,est, mod [facility], [address] [address], [place], [place], [address], [place] tel:[phone] [facility] Patient is here for a droopy eyelid consult (chief complaint) Ptosis - myogenic - bilateral upper lids H02.423Dermatoc halasis of right upper eyelid H02.831Dermatoc halasis of left upper eyelid H02.834 1 No Information Referring Provider: Saray Torre, [address] [place], [address]. tel:[phone] [facility], [address] [address], [place], [place], [address], tel:[phone] [facility] Patient is here for decreased and fuzzy vision. 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 [address] [facility], [address], [place], [place], [address], . tel:[phone] Referring Provider: Saray Torre, [address] [place], [address]. tel:[phone] Family History Family Member Type Diagnosis Age At Onset Sister Problem (finding) Cataracts Mother Problem (finding) Cataracts Brother Problem (finding) Cataracts Problem No relevant family history Payers Payer name Insurance type Covered libertarian ID Authoriza tion(s) Pres HP Senior Plan CAP CI [id number] Social History Type Description Quantity Date Captured [...] Z98.890; - See plan #1 Related to [place] tochalasis of right upper eyelid H02.831 - [...] H02.831 - See plan #1 Related to [place] tochalasis of left upper eyelid H02.834 - [...] not given today. Related to Presbyopia H52.4 - The patient was co unseled in detail on the diagnosis and understands. The patient was counseled on their treatment options. A consult is recommended. Related to Dermatochalasis of right upper eyelid H02.831 Assessments Type Assessment Date assessment Other specified postprocedural s tates Z98.890 Patient Care Teams Name Effective Dates (start - stop) Status Members No Information
== END 2025-07-23 12:35 | disposition home or self-care (01) ==
LOC: HO.MAMMO 12:34
PROVIDERS: PCP Nurse Practitioner Family; Visit Provider Nurse Practitioner Family
DX: Z12.31 Encounter for screening mammogram for malignant neoplasm of breast (principal)
CPT/HCPCS: 77063; 77067

== ENCOUNTER → 2025-07-23 12:45 | Outpatient (BNV) | payer MEDICARE, SELFPAY | PROVIDERS: PCP Nurse Practitioner Family; Visit Provider Internal Medicine | DX: Z12.31 Encounter for screening mammogram for malignant neoplasm of breast (principal) | CPT/HCPCS: 77063; 77067 ==

== ENCOUNTER 2025-07-31 11:22 | Outpatient (REF) | payer MEDICARE, SELFPAY ==
--- OUTSIDE RECORDS SUMMARY | 2021-10-14 05:30 | XMS_ITS | Continuity of Care Document ---
Author Organization [facility] Address [address] [address] [place] [address] Phone Care Team Providers Care Supplemental Nurse Name Role Phone Unavailable Unavailable Unavailable Allergies, Adverse Reactions, Alerts Substance Reaction Status Criticality No Known Allergies Active No Inform ation Medications Medication Instructions Dosage Effective Dates (start - stop) Status Comments erythromycin 5 mg/gram (0.5 %) eye ointment apply 1/4 inch to incisions 3x/day and in affected eye at bedtime for 7 days then ok to stop or use prn as needed - Active montelukast 10 mg tablet Take 1 tablet by mouth nightly. - Active clemastine 2.68 mg tablet Take 1 tablet by mouth 2 times daily as needed. - Active diclofenac sodium (VOLTAREN) 1 % gel APPLY 4 GRAMS EXTERNALLY TO THE AFFECTED AREA THREE TIMES DAILY NEEDED FOR KNEE PAIN - Active losartan 50 mg tablet TAKE 1 TABLET BY MOUTH DAILY - Active levothyroxine 100 mcg tablet TAKE 1 TABLET BY MOUTH EVERY MORNING - Active cyclobenzaprine 10 mg tablet Take 1 tablet by mouth nightly as needed for Muscle Spasms. - Active diclofenac sodium 75 mg tablet,delayed release TAKE 1 TABLET BY MOUTH TWICE DAILY NEEDED - Active famotidine 20 mg tablet Take 1 tablet by mouth 2 times daily. - Active Ventolin HFA 90 mcg/actuation aerosol inhaler INL 2 PFS PO Q 4 H PRN Apr-16-2019 - Active Flonase Sensimist 27.5 mcg/actuation nasal spray,suspension Place in each nostril daily. - Active atorvastatin 10 mg tablet Take 1 tablet by mouth daily. - No Longer Active Procedures Procedure Date Postop followup visit Repair drooping eyelid Office/outpatient visit,est, mod 2020 Visual field exam(s), limited Comprehensive eye exam, new patient No Charge Refraction Advance Directives Directive Yes / No Effective Date File Name No Information Encounters Encounter Description Practice Location Reason(s) For Visit Diagnoses Date Provider Providers Copied on Encounter Eye [facility], [address] [address], [place], [place], [id number], tel:[phone] [facility] Patient is here for a 1 week post-op s/p LA BUL (chief complaint) Other specified postprocedural states Z98.890 2 No Information Referring Provider: Saray Torre, [address] [facility], [place], [address]. tel:[phone] [facility], [address] [address], [place], [place], [id number], tel:[phone] [facility] No Information No Information Referring Provider: Saray Torre, [address] [facility], [place], [address]. tel:[phone] [facility], [address] [address], [place], [place], [address], [place] tel:[phone] [facility] No Information 2 No Information Office/outpa tient visit,est, mod [facility], [address] [address], [place], [place], [id number], [place] tel:[phone] [facility] Patient is here for a droopy eyelid consult (chief complaint) Ptosis - myogenic - bilateral upper lids H02.423Dermatoc halasis of right upper eyelid H02.831Dermatoc halasis of left upper eyelid H02.834 1 No Information Referring Provider: Saray Torre, [address] [place], [address]. tel:[phone] [facility], [address] [address], [place], [place], [address], tel:[phone] [facility] Patient is here for decreased and fuzzy vision. 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 [facility], [address], [place], [place], [address], . tel:[phone] Referring Provider: Saray Torre, [address] [place], [address]. tel:[phone] Family History Family Member Type Diagnosis Age At Onset Sister Problem (finding) Cataracts Mother Problem (finding) Cataracts Problem No relevant family history Brother Problem (finding) Cataracts Payers Payer name Insurance type Covered libertarian ID Authoriza tion(s) Pres HP Senior Plan CAP CI [id number] Social History Type Description Quantity Date Captured Comments Alcohol Use Details Unknown Caffeine Use Details Unknown Tobacco Use Status No Information Smoking Status No Information Sex Female Chief Complaint And Reason For Visit From encounter dated '10/14/2021 10:30'. Patient is here for a 1 week post-op s/p LA BUL (chief complaint) Reason For Referral Reason For Referral No Information History Of Present Illness Encounter Date Complaint History Of Prese nt Illness Patient is here for a 1 week post-op s/p LA BUL Patient is here for a 1 week post-op s/p LA BUL 10/06/21. She is healing well and has been compliant with her post-op medications and instructions. Patient is here for a droopy eyelid consult Patient is here for a droopy eyelid consult. Her eyelids have been bothering her over the past 2 years and finds the position bothering her recently with daily activities. She also feels some of the lashes turn in towards the eye and becomes irritating which she has tried epilating herself. She denies any issues with swallowing but does have a family history of droopy eyelids. Patient is here for decreased and fuzzy vision. Patient is here for decreased and fuzzy vision mostly in her left eye that is making reading slightly difficulty and seeing a computer screen. She had clear lens exchange surgery about 6 years ago, had monovision, her right eye is her distance eye and her left eye is her near eye. She does use artificial tears for dryness in both eyes. 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 Functional Status Date Functional Assessmen t No Information Instructions Date Instruction Additional Infor rodrigo - Wound healing well . No evidence of infection. Sutures removed with no incidents. Continue using antibiotic ointment once a day until runs out. Follow not needed unless any concern or problem emerges. If so, please call the office at up to three months for the surgical date to be seen.Continue routine ophthalmic care with primary eye care provider.Use lubricating drops PRN. Some brand names of Artificial Tears are Refresh, Systane, Genteal, Thera Tears or even store brand preservative free tears. Gel names are: Celluvisc Gel, Lacrilube, Genteal Severe Gel - all are available over the counter Related to Other specified postprocedural states Z98.890; - See plan #1 Related to [place] tochalasis of right upper eyelid H02.831 - The patient presen joan with increased difficulty seeing in the superior aspect of the visual field affecting the daily activities. On examination, there is a decreased in both palpebral apertures with a decrease medial reflex distance (1), secondary to detachment of the levator muscle and excess skin weighting down both upper lids. Explained patient potential risks, complications, benefits and alternatives and understood. Risk include, but not limited to: pain, bleeding, bruising, swelling, dry eye, infection, asymmetry (overcorrection, undercorrection, lid ending with different heights and or abnormal contour), scarring, damage to the eye, vision loss, re-operation, possible adverse reaction to the anesthesia - including . Patient electively decided to undergo bilateral upper lid levator advancement via external approach with excess skin reduction. Kinetic visual june done today. Point #1: This is a surgery on your eyelids NOT your eyes. The surgery WILL NOT affect the clarity of your vision. Point #2: This is a surgery on your eyelids NOT your eyebrows. The area above the eyelid, eyebrow fat pad and bone belong to the eyebrow and will not be worked on surgically. Additional fold of skin are produced by the brow, that WILL NOT be corrected with this procedure, since its considered cosmeticPoint #3: Symmetry. Everyone is different, that is normal and after the surgery there will still be some difference. There can still be some difference from one side to the other. Point #4: Dryness. This is a risk of the surgery. Excess tearing can be a sign of dryness and may require strict regimen of lubrication with artificial tears, gel and/or ointment. In severe cases can reverse the ptosis repair if applicable. 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 R elated to Dermatochalasis of right upper eyelid H02.831 - See plan #1 Related to [place] tochalasis of left upper eyelid H02.834 - The patient was co unseled on their treatment options. Patient will call if worsening.- Recommended artifical tears, such as Systane or Refresh 3-4x/day- Recommended warm compress 1-2x/day for 5 minutes at a time with lid massage- Recommended gel drop before bedtime, such as Genteal Gel Related to Dry eye syndrome of bilateral lacrimal glands H04.123 - Will continue to o bserve condition and or symptoms. Related to Pseudophakia Z96.1 - The patient was co unseled in detail on the diagnosis and understands. The patient was counseled on their treatment options. A consult is recommended. Related to Dermatochalasis of right upper eyelid H02.831 - The patient was co unseled in detail on the diagnosis and understands. New glasses prescription was not given today. Related to Presbyopia H52.4 Assessments Type Assessment Date assessment Other specified postprocedural s velma Z98.890 Patient Care Teams Name Effective Dates (start - stop) Status Members No Information
--- OUTSIDE RECORDS SUMMARY | 2021-10-14 05:30 | XMS_ITS | Continuity of Care Document ---
Author Organization [facility] Address [address] [address] [place] [address] Phone Care Team Providers Care Candy Supervisor Name Role Phone Unavailable Unavailable Unavailable Allergies, [...] Date Provider Providers Copied on Encounter Eye [facility], [address] [address], [place], [place], [id number], tel:[phone] [facility] Patient is here for a 1 week post-op s/p LA BUL (chief complaint) Other specified postprocedural states Z98.890 2 No Information Referring Provider: Saray Torre, [address] [facility] [place], [address]. tel:[phone] [facility], [address] [address], [place], [place], [address], tel:[phone] [facility] No Information No Information Referring Provider: Saray Torre, [address] [facility] [place], [place], [address]. tel:[phone] [facility], [address] [address], [place], [place], [address], [place] tel:[phone] [facility] No Information 2 No Information Office/outpa tient visit,est, mod [facility], [address] [address], [place], [place], [address], [place] tel:[phone] [facility] Patient is here for a droopy eyelid consult (chief complaint) Ptosis - myogenic - bilateral upper lids H02.423Dermatoc halasis of right upper eyelid H02.831Dermatoc halasis of left upper eyelid H02.834 1 No Information Referring Provider: Saray Torre, [address] [place], [address]. tel:[phone] [facility], [address] [address], [place], [place], [address], tel:[phone] [facility] Patient is here for decreased and fuzzy vision. 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 [address] [facility], [address], [place], [place], [address], . tel:[phone] Referring Provider: Saray Torre, [address] [place], [address]. tel:[phone] Family History Family Member Type Diagnosis Age At Onset Brother Problem (finding) Cataracts Problem No relevant family history Mother Problem (finding) Cataracts Sister Problem (finding) Cataracts Payers Payer name Insurance type Covered republican ID Authoriza tion(s) Pres HP Senior Plan CAP CI [id number] Social History Type Description Quantity Date Captured [...] Z98.890; - See plan #1 Related to [place] tochalasis of left upper eyelid H02.834 - Visual June Kinetic today. R elated [...] myogenic - bilateral upper lids H02.423 - See plan #1 Related to [place] tochalasis of right upper eyelid H02.831 - [...] given today. Related to Presbyopia H52.4 - Will continue to o bserve condition and or symptoms. Related to Pseudophakia Z96.1 - The patient was co unseled on their treatment options. Patient will call if worsening.- Recommended artifical tears, such as Systane or Refresh 3-4x/day- Recommended warm compress 1-2x/day for 5 minutes at a time with lid massage- Recommended gel drop before bedtime, such as Genteal Gel Related to Dry eye syndrome of bilateral lacrimal glands H04.123 Assessments Type Assessment Date assessment Other specified postprocedural s oliveshahana Z98.890 Patient Care Teams Name Effective Dates (start - stop) Status Members No Information
--- NOTE | ~2025-07-31 | MM_ITS ---
EXAMINATION: DXA BONE DENSITY AXIAL HISTORY: Z13.820 - Encounter for screening for osteoporosis TECHNIQUE: get2play Dual energy absorptiometry (DEXA) of the lumbar spine, total left hip, and femoral neck was performed. COMPARISON: None. FINDINGS: The bone mineral density of the lumbar spine is 1.245 g/cm2, corresponding to a T-score of 0.5, and a Z-score of 1.9. This is indicative of normal bone mineral density. The bone mineral density of the left total hip is 0.919 g/cm2, corresponding to a T-score of -0.7, and a Z-score of 0.6. This is indicative of normal bone mineral density. The bone mineral density of the left femoral neck is 0.779 g/cm2, corresponding to a T-score of -1.9, and a Z-score of -0.3. This is indicative of osteopenia. FRACTURE RISK: The FRAX index suggests a ten year probability of major osteoporotic fracture of 18.9%, and of hip fracture 7.8%. MM/XR DEXA axial skeleton IMPRESSION: Based on bone mineral density, and according to World Health Organization (WHO) criteria, the diagnosis is consistent with osteopenia based on lowest T score of -1.9 in the left femoral neck. Treatment Recommendations: NOF guidelines recommend consideration for treatment in postmenopausal women and men age 50 and older presenting with the following: -A hip or vertebral (clinical or morphometric) fracture. -T-score less than or equal to -2.5 at the femoral neck or spine after appropriate evaluation to exclude secondary causes. -Low bone mass at the hip or spine and a 10-year fracture probability by FRAX of greater than or equal to 3% for hip fracture or greater than or equal to 20% for major osteoporotic fracture based on the [place] adapted WHO algorithm. Other Recommendations: All treatment decisions require clinical judgment and consideration of individual patient factors, including patient preferences, comorbidities, previous drug use, risk factors not captured in the FRAX model (e.g. frailty, falls, vitamin D deficiency, increased bone turnover, interval significant decline in bone density) and possible under or overestimation of fracture risk by FRAX. Additional medical evaluation for secondary cause of low bone mineral density may be appropriate. FUTURE SCAN RECOMMENDATION: People with diagnosed cases of osteoporosis or at high risk for fracture should have regular bone mineral density tests. For patients eligible for Medicare, routine testing is allowed once every 2 years. The testing frequency can be increased to one year for patients who have rapidly progressing disease, those who are receiving or discontinuing medical therapy to restore bone mass, or have additional risk factors. Statistically, 68% of repeat scans fall within 1 SD (+/- 0.010 g/cm2 for AP spine L1-L4) and 1 SD (+/- 0.012 g/cm2 for femur total) FRAX is a trademark of the [employer] [place] [facility] Metabolic Bone Disease, a World Health Organization (WHO) Collaborating Center. Electronically signed by: Mariama Hughes MD 07/31/2025 01:24 PM MARKUS FRANCISCO
== END 2025-07-31 11:23 | disposition home or self-care (01) ==
LOC: HO.MAMMO 11:22
PROVIDERS: PCP Nurse Practitioner Family; Visit Provider Nurse Practitioner Family
DX: Z13.820 Encounter for screening for osteoporosis (principal); M85.88 Other specified disorders of bone density and structure, other site; M85.852 Other specified disorders of bone density and structure, left thigh
CPT/HCPCS: 77080

== ENCOUNTER → 2025-07-31 11:30 | Outpatient (BNV) | payer MEDICARE, SELFPAY | PROVIDERS: PCP Nurse Practitioner Family; Visit Provider Radiology Diagnostic Radiology | DX: E28.39 Other primary ovarian failure (principal) | CPT/HCPCS: 77080 ==